=== PATIENT | female | born 1940 | race Caucasian/White ===

== ENCOUNTER → 2016-12-14 | Outpatient (CLI) | payer BC ==
[2016-12-14 17:12] LABS: BLOOD UREA NITROGEN 12 mg/dl (7-18); BUN/CREATININE RATIO 21.9 (10-20); CALCIUM 8.9 mg/dl (8.5-10.1); CARBON DIOXIDE 30 mmol/L (21-32); CHLORIDE 105 mmol/L (98-107); CREATININE 0.54 mg/dl (0.60-1.20); GLUCOSE 94 mg/dl (70-99); PHOSPHORUS 3.1 mg/dl (2.5-4.9); POTASSIUM 3.7 mmol/L (3.5-5.1); SODIUM 142 mmol/L (136-145)
== END | disposition home or self-care (01) ==
LOC: C.LABBC 12:30
PROVIDERS: ATTEND Internal Medicine Nephrology
DX: N28.1 Cyst of kidney, acquired (principal)

== ENCOUNTER → 2016-12-16 | Outpatient (CLI) | payer BC ==
[2016-12-16 16:06] LABS: URINE APPEARANCE CLEAR (CLEAR); URINE BILIRUBIN NEG (NEG); URINE COLOR DK YELLOW; URINE NITRITE NEG (NEG); URINE SPECIFIC GRAVITY 1.013 (1.000-1.030); UROBILINOGEN NEG (NEG); ZZUR CULT IF INDIC CLEAN CATCH NO
[2016-12-16 16:10] LABS: MANUAL MICROSCOPIC REQUIRED? NO; REVIEW REQ? NO
[2016-12-16 18:59] LABS: URINE PROTIEN/CREAT RATIO 0.1 (0-0.2); URINE TOTAL PROTEIN 6.4 mg/dl (0-11.9)
== END | disposition home or self-care (01) ==
LOC: C.LAB1850 13:46
PROVIDERS: ATTEND Internal Medicine Nephrology
DX: N28.1 Cyst of kidney, acquired (principal)

== ENCOUNTER → 2017-04-05 | Outpatient (CLI) | payer BC ==
[2017-04-05 11:16] LABS: BASO % 0.8 %; BASO ABS # 0.04 K/uL (0-0.2); COMPLETE YES; EOS % 3.2 %; HEMATOCRIT 39.8 % (37-47); LYMPH % 29.2 %; LYMPH ABS # 1.47 K/uL (1.2-3.4); MEAN CELL VOLUME 94.5 fL (80-100); MEAN CORPUSCULAR HEMOGLOBIN 31.1 pg (25-34); MEAN CORPUSCULAR HGB CONC 32.9 g/dl (32-36); MEAN PLATELET VOLUME 10.7 fL (7.4-10.4); MONO % 11.7 %; NEUT % 55.1 %; PLATELET COUNT 219 K/uL (130-400); RED BLOOD COUNT 4.21 M/uL (4.2-5.4); WHITE BLOOD COUNT 5.04 K/uL (4.8-10.8)
[2017-04-05 11:35] LABS: ALT/SGPT 25 U/L (12-78); BLOOD UREA NITROGEN 19 mg/dl (7-18); BUN/CREATININE RATIO 29.1 (10-20); CALCIUM 8.8 mg/dl (8.5-10.1); CARBON DIOXIDE 31 mmol/L (21-32); CHLORIDE 105 mmol/L (98-107); CHOLESTEROL 272 mg/dl (0-200); CREATININE 0.64 mg/dl (0.60-1.20); GLUCOSE 107 mg/dl (70-99); POTASSIUM 3.8 mmol/L (3.5-5.1); SODIUM 141 mmol/L (136-145)
[2017-04-05 11:46] LABS: ALB/GLOB RATIO 1.1 (0.9-2); ALKALINE PHOSPHATASE 93 U/L (45-117); AST/SGOT 23 U/L (15-37); CHOLESTEROL/HDL RATIO 2.5; HDL CHOLESTEROL 111 mg/dl; LDL CHOLESTEROL CALCULATED 156 mg/dl; TRIGLYCERIDES 23 mg/dl (0-150); VERY LOW DENSITY LIPOPROT CALC 5 mg/dl
--- NOTE | 2017-04-09 13:46 | CODING QUERY MEDICAL NECESSITY ---
SUPPORTING DIAGNOSIS NEEDED A supporting diagnosis is required for the test/procedure performed on this patient in order for us to be reimbursed by the patient's insurance. Please provide a supporting diagnosis for the following test/procedure listed below next to the test name along with your signature. *If there is no additional diagnosis for this patient that would support the following test/procedure please document that below next to the test/procedure. Test(s)/Procedure(s) that require a supporting diagnosis: * VITAMIN D, 25-HYDROXY DIAGNOSIS: Provider Signature: Date: Thank you Duyen Santa [employer] Information Management Once completed, please kindly fax back to [phone] For questions please call [phone]
== END | disposition home or self-care (01) ==
LOC: C.LABBC 08:56
PROVIDERS: ATTEND Internal Medicine Geriatric Medicine
DX: E78.5 Hyperlipidemia, unspecified (principal); K58.9 Irritable bowel syndrome, unspecified; M16.11 Unilateral primary osteoarthritis, right hip; M81.0 Age-related osteoporosis without current pathological fracture

== ENCOUNTER → 2017-12-02 | Outpatient (CLI) | payer BC ==
[2017-12-02 09:36] LABS: BASO % 0.9 %; BASO ABS # 0.05 K/uL (0-0.2); EOS % 3.4 %; EOS ABS # 0.18 K/uL (0-0.5); HEMATOCRIT 41.7 % (37-47); HEMOGLOBIN 13.9 g/dL (12.0-16.0); IG# 0.01 K/uL (0.00-0.02); LYMPH ABS # 1.44 K/uL (1.2-3.4); MEAN CELL VOLUME 93.3 fL (80-100); MEAN CORPUSCULAR HEMOGLOBIN 31.1 pg (25-34); MEAN CORPUSCULAR HGB CONC 33.3 g/dl (32-36); MEAN PLATELET VOLUME 10.3 fL (7.4-10.4); MONO % 11.6 %; MONO ABS # 0.62 K/uL (0.11-0.59); NEUT % 56.9 %; NEUT ABS # 3.03 K/uL (1.4-6.5); PLATELET COUNT 228 K/uL (130-400); RED CELL DISTRIBUTION WIDTH CV 14.3 % (11.5-14.5); RED CELL DISTRIBUTION WIDTH SD 48.8 fL (36.4-46.3); WHITE BLOOD COUNT 5.33 K/uL (4.8-10.8)
[2017-12-02 09:46] LABS: BLOOD UREA NITROGEN 25 mg/dl (7-18); CARBON DIOXIDE 31 mmol/L (21-32); CREATININE 0.64 mg/dl (0.60-1.20); GLUCOSE 105 mg/dl (70-99); POTASSIUM 4.2 mmol/L (3.5-5.1); SODIUM 137 mmol/L (136-145)
== END | disposition home or self-care (01) ==
LOC: C.CPL 08:15
PROVIDERS: ATTEND Orthopaedic Surgery Hand Surgery
DX: Z01.818 Encounter for other preprocedural examination (principal); D18.01 Hemangioma of skin and subcutaneous tissue; R22.32 Localized swelling, mass and lump, left upper limb

== ENCOUNTER → 2018-04-11 | Outpatient (CLI) | payer BC | END | disposition home or self-care (01) | LOC: C.LABBC 08:12 | PROVIDERS: ATTEND Internal Medicine Geriatric Medicine | DX: E78.5 Hyperlipidemia, unspecified (principal) ==

== ENCOUNTER 2023-12-31 14:51 | Inpatient (IN) ==
--- NOTE | 2023-12-31 15:50 | XRay Report ---
XR hip RT 2V w pelvis CLINICAL HISTORY: trauma. Right hip pain. COMPARISON STUDY: None. FINDINGS: Mildly displaced and comminuted intertrochanteric fracture within the proximal right femur. No dislocation of the femoral head. The visualized pelvic bones and left hip are intact. Vascular ca lcifications are noted. IMPRESSION: Mildly displaced and comminuted intertrochanteric fracture within the proximal right fem ur. ACT 112: Negative or not required by law. Electronically signed by: Marcio Jackson M.D. 12/31/2023 3:48 PM
[2023-12-31] MEDS ORDERED: MoRPHine SULFATE 2 MG/ML CARP IV PRN (15:57)
--- NOTE | 2023-12-31 16:00 | Emergency Department Note ---
Impression & Plan Acute pain of right hip, Intertrochanteric fracture of right hip ED Provider Note ED Provider Note NAME: INOCENTE ROSARIO AGE:83 SEX: Female : 1940 ARRIVES VIA: EMS INFORMANT: Patient ED PROVIDER(s): Marga Goldberg DO CHIEF COMPLAINT: Fall, right hip pain HPI: This is an 83-year-old female who presents emergency department due to concern for a fall and subsequent right hip pain. Patient was at work today and went to transfer from a stationary chair to a chair with wheels and that chair slid out from under her causing her to fall. She states she landed on her butt and hips. She did not strike her head or lose consciousness. Patient states she felt well just was unable to get up due to pain. Patient denies any other prodromal symptoms this morning. Has otherwise been feeling well and in her usual state of health. Patient states she does take low-dose aspirin every other day, no other blood thinners. PAST MEDICAL HISTORY:See Below PAST SURGICAL HISTORY:See Below FAMILY HISTORY:See Below SOCIAL HISTORY:See Below HOME MEDICATIONS:See Below ALLERGIES:See Below VITALS:See Below PHYSICAL EXAMINATION: GENERAL: alert, well appearing, well nourished, no distress, non-toxic EYE EXAM: normal conjunctiva, PERRL and EOM's grossly intact OROPHARYNX: no exudate, no erythema, lips, buccal mucosa, and tongue normal and mucous membranes are dry NECK: supple, no nuchal rigidity, no adenopathy, non-tender LUNGS: Clear to auscultation. Normal chest wall mechanics, no w/r/r HEART: no murmurs, S1 normal and S2 normal ABDOMEN: abdomen soft, non-tender, normo-active bowel sounds, no masses, no rebound or guarding. SKIN: no rashes, petechiae, orbruising UPPER EXTREMITIES: upper extremities are grossly normal. FROM, nml pulses b/l. LOWER EXTREMITIES: No pitting edema. FROM LLE, nml pulses b/l. Sensation intact bilaterally. Decreased range of motion secondary to pain at the right hip. Right lower extremity externally rotated. NEURO EXAM: Normal sensorium, cranial nerves II-XII grossly intact, normal speech, no facial droop,nogross weakness of arms, no gross weakness of legs. Gross sensation intact. No ataxia. Vital Signs: reviewed and remarkable Differential Diagnosis: Occult fracture, dislocation, subluxation, contusion, musculoskeletal strain/sprain, hematoma, ligamentous injury, as well as others were considered MEDICAL DECISION MAKING: This is an 83 yo female who presents to the ER following an accidental fall while at work. Xrays performed at bedside and interpreted by me which showed intertrochanteric right hip fracture. Patient updated at bedside. Labs drawn and sent, IV established, and patient monitored on telemetry. She was given IVF and IV tylenol initially. A prn of morphine was also added. EKG performed and interpreted by me additionally. CXR added given need for operative intervention. Case discussed the hospitalist team for additional evaluation and mgmt. I did contact [facility] orthopedics per patient request. Given patient will require medical clearance andher last oral intake was at 12:30 today, they defer consultation to the oncoming orthopedist at 5pm. Consultation(s): 1606: Discussed with Dr. Montgomery and Escobar Diallo PA-C with [facility] hospitalist service for additional evaluation and mgmt. ER Treatment Provided: See below 1548: Patient and family are now presents to bedside updated on x-ray results. Patient would like the [facility] orthopedic group to perform the surgery as she has seen them previously. Diagnostics Interpreted By Me: -ECG: Normal sinus at 72, normal axis, normal intervals, nonspecific ST/T wave changes -Cardiac Monitoring: An order was placed for continuous cardiac monitoring. The monitor shows a rate of 70 with normal sinus rhythm. -Laboratory studies: As stated above and show below. -Imaging studies: xr right hip: Intertrochanteric hip fracture noted with mild displacement Triage Nursing Note Reviewed Prior/Outside Records Reviewed Past Med/Surg History Medical History Wart of face Encounter for pre-operative examination Liver cyst Diverticulosis of sigmoid colon Uterine cancer Post hysterectomy bilateral salpingo-oophorectomy August 2002 Reactive hypertension Dyslipidemia Irritable bowel syndrome Osteoarthritis of right hip Osteoarthritis of spine Osteoporosis Sensorineural hearing loss (SNHL) of both ears Surgical History History of right cataract surgery History of bilateral tubal ligation History of esophagogastroduodenoscopy (EGD) History of total hysterectomy with bilateral salpingo-oophorectomy (BSO) (~2002) History of wisdom tooth extraction History of hernia surgery 08/2019 @ [facility] [place]--also repaired uterine prolapse at the same time History of uterine prolapse done at same time as hernia sx History of colonoscopy S/P tonsillectomy Family History Son Esophageal reflux Asthma Father Diabetes Heart disease Myocardial infarction Hypertension Mother Heart disease Daughter Allergies Family/Other Dyslipidemia Breast cancer Substance abuse in family Other No family history of adverse response to anesthesia Denies family history of Ovarian cancer Prostate cancer Colonic polyp Social History Smoking Status: Former smoker Tobacco Type: Cigarettes Age Started Using Tobacco: 19; Age Quit Using Tobacco: 24; packs per day: 0.5; Second Hand Exposure: No; Do You Dip or Chew Tobacco: No; Tobacco Cessation Education Requested by Patient: No Hx Alcohol Use: Yes Alcohol type: wine Alcohol Intake Frequency: 4 or More x per/Week Alcohol Intake Frequency Comment: 1 glass of wine daily Hx Substance Use: No Preferred Language: Korean Communication Ability: Effective Director Script Required: No Beliefs That Will Affect Care: None marital status: Current Living Situation: Spouse current occupational status: employed current occupation: works some at [employer] Other Information That Helps Us Care for You: No Feels Safe at Home: Yes Safety Concerns: Feels Safe At This Time Childhood Exposure to Second-Hand Smoke: Yes Dental Care, Regularly: Yes Physical Activity Frequency: 5-6 Times per Week Physical Activity Frequency Comment: pilates, walking Seatbelt Use: always Sunscreen Use: Yes Assistive Devices: None Allergies Allergies Allergy/AdvReac Type Severity Reaction Status Date / Time cephalexin Allergy Mild red rash Verified 12/31/23 18:31 all over body Home Meds Home Medications Medication Instructions Recorded Confirmed multivitamin (Multiple Vitamins 1 tab PO BID 03/20/19 12/31/23 tablet) omega-3 fatty acids 1,000 mg 1,000 mg PO QPM 03/20/19 12/31/23 capsule ascorbic acid (vitamin C) 500 mg 500 mg PO BID 07/14/19 12/31/23 tablet cholecalciferol (vitamin D3) 50 2,000 units PO QAM 07/14/19 12/31/23 mcg (2,000 unit) tablet vitamin E 600 unit capsule 600 units PO QPM 07/14/19 12/31/23 calcium carbonate (Calcium 600) 1,200 mg PO BID 02/10/21 12/31/23 turmeric 400 mg capsule 400 mg PO QAM 02/10/21 12/31/23 coenzyme Q10 100 mg capsule 100 mg PO QDL 03/18/21 12/31/23 (CoQ-10) zinc 50 mg tablet 50 mg PO QPM 03/18/21 12/31/23 aspirin 81 mg tablet,delayed 81 mg PO Q OTHER DAY 03/22/23 12/31/23 release vitamin A 1 applic topical HS Applies to face 12/31/23 12/31/23 Previous Rx's Medication Instructions Recorded amlodipine 2.5 mg tablet 2.5 mg PO QAM #90 tabs 03/22/23 rosuvastatin 10 mg tablet (Crestor) 10 mg PO HS #90 tabs 03/22/23 Results & Data (ED) Vital Signs Vital Signs - 24 hr 12/31/23 15:11 12/31/23 15:18 Temperature 36.9 C Temperature Source Oral Pulse Rate 75 74 Pulse Rhythm Regular Pulse Strength Normal Respiratory Rate 18 Respiratory Effort / Characteristics Non-Labored Respiratory Depth Normal Respiratory Pattern Regular Blood Pressure 136/96 Blood Pressure Mean 109 Blood Pressure Position Sitting Pulse Oximetry 95 Oxygen Delivery Method Room Air Sepsis Recent Fever Within 48 Hours No Sepsis New/Unexplained Change in Mental Status N/A Sepsis Action Taken by Nursing No Action Required Laboratory Data 01/01/24 06:22 01/01/24 06:22 Lab Results 12/31/23 Range/Units 16:23 WBC 8.91 (4.8-10.8) K/ul RBC 4.62 (4.20-5.40) M/uL Hgb 13.8 (12.0-16.0) g/dl Hct 41.9 (37.0-47.0) % MCV 90.7 (80.0-100.0) fL MCH 29.9 (25.0-34.0) pg MCHC 32.9 (32.0-36.0) g/dL RDW Std Deviation 47.8 H (36.4-46.3) fL RDW Coeff of Arnel 14.2 (11.5-14.5) % Plt Count 225 (130-400) K/uL MPV 10.9 (9.4-12.4) fL Immature Gran % (Auto) 1.1 % Neut % (Auto) 78.3 % Lymph % (Auto) 11.3 % Smyth % (Auto) 7.9 % Eos % (Auto) 0.8 % Baso % (Auto) 0.6 % Neut # (Auto) 6.98 H (1.40-6.50) K/uL Lymph # (Auto) 1.01 L (1.20-3.40) K/uL Smyth # (Auto) 0.70 H (0.11-0.59) K/uL Eos # (Auto) 0.07 (0.00-0.50) K/uL Baso # (Auto) 0.05 (0.00-0.20) K/uL Immature Gran # (Auto) 0.10 (0.01-0.20) K/uL PT 10.9 (9.0-12.0) Seconds INR 1.0 (0.9-1.1) Sodium 138 (136-145) mmol/L Potassium 3.8 (3.5-5.1) mmol/L Chloride 103 (98-107) mmol/L Carbon Dioxide 27 (21-32) mmol/L Anion Gap 8 (3-11) BUN 27 H (6-23) mg/dl Creatinine 0.42 L (0.6-1.2) mg/dl Est Cr Clr Drug Dosing 86.9 ml/min Est GFR ( Amer) 111.4 ml/min Est GFR (Non-Af Amer) 96.1 ml/min BUN/Creatinine Ratio 64.3 H (10-20) Glucose 119 H (70-99(Fasting)) mg/dl Calcium 9.7 (8.6-10.3) mg/dl Total Bilirubin 0.4 (0.2-1.0) mg/dl AST 23 (13-39) U/L ALT 19 (7-52) U/L Alkaline Phosphatase 96 (34-104) U/L Total Protein 7.4 (6.0-8.3) gm/dl Albumin 4.2 (3.4-5.0) gm/dl Globulin 3.2 (2.5-4.0) gm/dl Albumin/Globulin Ratio 1.3 (0.9-2) Administered Medications Acetaminophen (Acetaminophen 325 Mg Tab) 650 mg PO Q6H ERNESTO Stop: 01/30/24 19:59 Last Admin: 01/01/24 14:20 Dose: 650 mg Documented By: Admin: 01/01/24 11:18 Dose: Not Given Documented By: Admin: 01/01/24 02:15 Dose: 650 mg Documented By: Admin: 12/31/23 22:09 Dose: 650 mg Documented By: LUMA Aspirin (Aspirin 81 Mg Ectab) 81 mg PO Q2D@2100 ERNESTO Stop: 01/30/24 20:59 Last Admin: 12/31/23 22:09 Dose: 81 mg Documented By: LUMA Sodium Chloride (Nss) 1,000 mls @ 75 mls/hr IV .[id number] [facility] Stop: 01/30/24 15:44 Last Admin: 01/01/24 03:40 Dose: 125 mls/hr Documented By: Infusion: 01/01/24 03:40 Dose: Infused Documented By: Admin: 12/31/23 20:02 Dose: 125 mls/hr Documented By: Infusion: 12/31/23 20:01 Dose: Infused Documented By: Admin: 12/31/23 16:20 Dose: 125 mls/hr Documented By: SHARRON Morphine Sulfate (Morphine Sulfate 2 Mg/Ml Carp) 2 mg IV Q3H PRN PRN Reason: Pain (1,2,3,4,5) & Pre PT Stop: 01/14/24 16:30 Last Admin: 12/31/23 19:59 Dose: 2 mg Documented By: LUMA Rosuvastatin Calcium (Rosuvastatin Calcium 10 Mg Tab) 10 mg PO HS ERNESTO Stop: 01/30/24 20:59 Last Admin: 12/31/23 22:09 Dose: 10 mg Documented By: LUMA Discontinued Medications Acetaminophen (Acetaminophen 1000 Mg/100 Ml Iv) Confirm Administered Dose 1,000 mg IV .STK-MED ONE Stop: 01/01/24 07:49 Last Admin: 01/01/24 11:18 Dose: Not Given Documented By: LAUREN Bupivacaine HCl/Epinephrine Bitart (Bupivacaine/Epinephrine 0.25% 1:200,000 30 Ml Vial) Confirm Administered Dose 30 ml .ROUTE .STK-MED ONE Stop: 01/01/24 07:29 Last Admin: 01/01/24 08:52 Dose: 30 ml Documented By: AKBAR Acetaminophen (Ofirmev) 1,000 mg in 100 mls @ 400 mls/hr IV NOW STA Stop: 12/31/23 15:57 Last Infusion: 12/31/23 16:35 Dose: Infused Documented By: Admin: 12/31/23 16:20 Dose: 400 mls/hr Documented By: SHARRON Vancomycin HCl (Vancomycin Hcl) 1,000 mg in 270 mls @ 242 mls/hr IV PREOP ERNESTO; Protocol Stop: 01/02/24 05:59 Last Infusion: 01/01/24 11:19 Dose: Infused Documented By: Admin: 01/01/24 07:56 Dose: 242 mls/hr Documented By: MANJU Morphine Sulfate (Morphine Sulfate 4 Mg/Ml 1 Ml Carp\Vial) 4 mg IV Q3H PRN PRN Reason: Pain (6,7,8,9,10) Stop: 01/14/24 16:30 Last Admin: 01/01/24 06:14 Dose: 4 mg Documented By: Admin: 01/01/24 02:15 Dose: 4 mg Documented By: Admin: 12/31/23 22:59 Dose: 4 mg Documented By: Admin: 12/31/23 16:49 Dose: 4 mg Documented By: SHARRON Morphine Sulfate (Morphine Sulfate 4 Mg/Ml 1 Ml Carp\Vial) Confirm Administered Dose 4 mg .ROUTE .STK-MED ONE Stop: 12/31/23 16:48 Last Admin: 12/31/23 16:52 Dose: Not Given Documented By: [facility] Imaging Data Radiologist's Impression: Femur X-Ray 12/31/23 15:08 XR femur RT 2V routine HISTORY: 83 years-old Female trauma acute pain of the right hip and thigh COMPARISON: Pelvis and hip radiographs of same day TECHNIQUE: 2 views of the right femur FINDINGS: There is an acute and a comminuted mildly displaced intertrochanteric right femoral fracture. Severe right hip osteoarthritis. Demineralized appearance of the bones. No additional acute fracture or dislocation. Tricompartmental osteoarthritis of the knee. IMPRESSION: Acute comminuted and displaced intertrochanteric right femoral fracture. ACT 112: Negative or not required by law. The above report was generated using voice recognition software. It may contain grammatical, syntax or spelling errors. Electronically signed by: Cole Valentine M.D. 12/31/2023 4:03 PM Hip/Pelvis X-Ray 12/31/23 15:08 XR hip RT 2V w pelvis CLINICAL HISTORY: trauma. Right hip pain. COMPARISON STUDY: None. FINDINGS: Mildly displaced and comminuted intertrochanteric fracture within the proximal right femur. No dislocation of the femoral head. The visualized pelvic bones and left hip are intact. Vascular calcifications are noted. IMPRESSION: Mildly displaced and comminuted intertrochanteric fracture within the proximal right femur. ACT 112: Negative or not required by law. Electronically signed by: Macrio Jackson M.D. 12/31/2023 3:48 PM Discharge Plan Visit Data Chief Complaint: Leg Injury/Pain Stated Complaint: S/P FALL, R LEG PAIN ED Provider: Marga Goldberg Discharge Problem: Acute pain of right hip, Intertrochanteric fracture of right hip Patient Disposition: Admitted As Inpatient Discharge Instructions Interventions: ED Discharge Assessment Last Done: 12/31/23 18:58
--- NOTE | 2023-12-31 16:04 | XRay Report ---
XR femur RT 2V routine HISTORY: 83 years-old Female trauma acute pain of the right hip and thigh COMPARISON: Pelvis and hip radiographs of same day TECHNIQUE: 2 views of the right femur FINDINGS: There is an acute and a comminuted mildly displaced intertrochanteric right femoral fracture. Severe right hip osteoarthritis. Demineralized appearance of the bones. No additional acute fracture or disl ocation. Tricompartmental osteoarthritis of the knee. IMPRESSION: Acute comminuted and displaced intertrochanteric right femoral fracture. ACT 112: Negative or not required by law. The above report was generated using voice recognition software. It may contain grammatical, syntax o r spelling errors. Electronically signed by: Cole Valentine M.D. 12/31/2023 4:03 PM
--- NOTE | 2023-12-31 16:11 | History & Physical Report ---
Date of Service December 31, 2023 Assessment & Plan (1) Osteoporotic hip fracture: Plan: -Patient is currently stable and non-toxic appearing -Will plan to place patient on Med/surge unless pre-admission labs currently in process necessitate higher level of care -Patient sustained a Mildly displaced and comminuted intertrochanteric fracture within the proximal right femur after falling to the ground while trying to transfer from one chair to another at the [facility] -No prodromal symptoms, did not hit her head or lose consciousness, is not on anticoagulation -No other acute trauma on exam, pain is currently controlled at rest -Patient is a Class 1 on the Revised Cardiac Risk index, giving her a 3.9% 30- day risk of , NV, or Cardiac Arrest post >Patient is deemed cleared for Surgical Intervention -Will continue with Scheduled Tylenol and PRN morphine for pain control -Orthopedic consult placed -BL SCD's for DVT PPX for now -HH diet until midnight then NPO for surgery tomorrow, will confirm with Orthopedics regarding scheduled operation -AM CBC, CMP, mag, PT/INR (2) Fall: Plan: -Fell while trying to transfer from one chair to the other at her [employer] -Did not hit her head or lose consciousness -No other acute trauma on exam -No prodromal symptoms prior to fall -Fall precautions -PT/OT consults (3) Dyslipidemia: Plan: -Continue aspirin and statin (4) HTN (hypertension): Plan: -Stable -Will plan on holding her am amlodipine tomorrow if Orthopedics is planning on taking to the OR 12/31 (5) Coronary artery calcification: Plan: -No previous hx of NV or Stenting -Had a negative stress test on 07/26/23 -Continue aspirin and statin Plan The patient was discussed with Dr. Montgomery at the time of the admission History of Present Illness Chief Complaint: Fall, rightLE pain Primary Care Provider: Flaco Ferrell MD Ita is an 83 year old female with a PMH significant for Hyperlipidemia, Mitral Valve Prolapse, Hypertension, Dilated Ascending Aorta (4.2 cm), Prediabetes, Osteoarthritis, Osteoporosis, and Endometrial Cancer s/p LADI/BSO who presented to the [facility] ED on 12/31/23 with a chief complaint of RLE pain after falling out of a chair at her place of work. Per the ED staff, the patient was trying to transfer from a stationary chair to a chair with wheels. While trying to transfer, the chair with wheels moved causing her to fall to the ground and land on her buttocks. She remained stable in the ED. CBC, CMP, and PT/INR were obtain shortly before admission and are in process. Xray of the pelvis and right femur show an Acute comminuted and displaced intertrochanteric right femoral fracture. Chest xray was read as negative for acute findings. Prior to admission the patient was given 1L NSS, 1gm IV tylenol, and 2 mg IV morphine. At the time of the exam the patient was sitting in bed in no acute distress with her bedside. She states that she was at the [facility] when she was trying to switch from one chair to the other. She states that the new chair she was trying to transfer to rolled out from under her, causing her to fall to the ground. She landed on her right buttocks/hip, did not hit her head or lose consciousness. She is only on aspirin and is not on systemic anticoagulation. Her only pain at this time is in her right hip/RLE; pain is currently mild at rest. She currently denies fever, chills, headache, chest pain, SOB, cough, abd pain, nausea, vomiting, diarrhea, dysuria hematuria, melena, and recent LE swelling. She did have her am meds today. She last ate at approximately 1300 today. She is a full code and her is her medical decision maker if she cannot make decisions herself. Please refer to Dr. Montgomery's attestation for any changes to the treatment plan Allergies Allergy/AdvReac Type Severity Reaction Status Date / Time cephalexin Allergy Mild red rash Verified 12/31/23 18:31 all over body Home Medications Medication Instructions Recorded Confirmed Type multivitamin (Multiple Vitamins 1 tab PO BID 03/20/19 12/31/23 History tablet) omega-3 fatty acids 1,000 mg 1,000 mg PO QPM 03/20/19 12/31/23 History capsule ascorbic acid (vitamin C) 500 mg 500 mg PO BID 07/14/19 12/31/23 History tablet cholecalciferol (vitamin D3) 50 2,000 units PO QAM 07/14/19 12/31/23 History mcg (2,000 unit) tablet vitamin E 600 unit capsule 600 units PO QPM 07/14/19 12/31/23 History calcium carbonate (Calcium 600) 1,200 mg PO BID 02/10/21 12/31/23 History turmeric 400 mg capsule 400 mg PO QAM 02/10/21 12/31/23 History coenzyme Q10 100 mg capsule 100 mg PO QDL 03/18/21 12/31/23 History (CoQ-10) zinc 50 mg tablet 50 mg PO QPM 03/18/21 12/31/23 History amlodipine 2.5 mg tablet 2.5 mg PO QAM #90 tabs 03/22/23 12/31/23 Rx aspirin 81 mg tablet,delayed 81 mg PO Q OTHER DAY 03/22/23 12/31/23 History release rosuvastatin 10 mg tablet (Crestor) 10 mg PO HS #90 tabs 03/22/23 12/31/23 Rx vitamin A 1 applic topical HS Applies to face 12/31/23 12/31/23 History Past Med/Surg History Medical History Wart of face Encounter for pre-operative examination Liver cyst Diverticulosis of sigmoid colon Uterine cancer Post hysterectomy bilateral salpingo-oophorectomy August 2002 Reactive hypertension Dyslipidemia Irritable bowel syndrome Osteoarthritis of right hip Osteoarthritis of spine Osteoporosis Sensorineural hearing loss (SNHL) of both ears Surgical History History of right cataract surgery History of bilateral tubal ligation History of esophagogastroduodenoscopy (EGD) History of total hysterectomy with bilateral salpingo-oophorectomy (BSO) (~2002) History of wisdom tooth extraction History of hernia surgery 08/2019 @ [facility]--also repaired uterine prolapse at the same time History of uterine prolapse done at same time as hernia sx History of colonoscopy S/P tonsillectomy Family History Son Esophageal reflux Asthma Father Diabetes Heart disease Myocardial infarction Hypertension Mother Heart disease Daughter Allergies Family/Other Dyslipidemia Breast cancer Substance abuse in family Other No family history of adverse response to anesthesia Denies family history of Ovarian cancer Prostate cancer Colonic polyp Social History Smoking Status: Former smoker Tobacco Type: Cigarettes Age Started Using Tobacco: 19; Age Quit Using Tobacco: 24; packs per day: 0.5; Second Hand Exposure: No; Do You Dip or Chew Tobacco: No; Tobacco Cessation Education Requested by Patient: No Hx Alcohol Use: Yes Alcohol type: wine Alcohol Intake Frequency: 4 or More x per/Week Alcohol Intake Frequency Comment: 1 glass of wine daily Hx Substance Use: No Preferred Language: Armenian Communication Ability: Effective Global Category Manager Required: No Beliefs That Will Affect Care: None marital status: Current Living Situation: Spouse current occupational status: employed current occupation: works some at [employer] Other Information That Helps Us Care for You: No Feels Safe at Home: Yes Safety Concerns: Feels Safe At This Time Childhood Exposure to Second-Hand Smoke: Yes Dental Care, Regularly: Yes Physical Activity Frequency: 5-6 Times per Week Physical Activity Frequency Comment: pilates, walking Seatbelt Use: always Sunscreen Use: Yes Assistive Devices: None Physical Exam Physical Exam: Physical Exam: General: In no acute distress, stated age, well-nourished, good hygiene HEENT: Normocephalic, atraumatic, no scleral icterus, pupils around round, symmetrical, and reactive to light, moist mucus membranes, trachea midline, no thyromegaly Chest/Pulm: No respiratory distress, symmetrical chest expansion, clear breath sounds throughout Cardiac: RRR, no murmurs noted Abdomen: Negative for ascites and bruising, normoactive bowel sounds, soft, non-tender to palpation throughout Musculoskeletal: RLE is currently shortened and externally, no bruising or bleeding noted on examingation of the abdomen/pelvis/BL LE's, no other acute trauma noted on inspection and palpation of the head, neck, BL UE's, chest, abd/pelvis, and LLE, >Intact sensation and motor function in the BL feet Extremities: Radial, dorsalis pedis, and posterior tibial pulses are intact and symmetrical, no edema noted in the BL LE's Skin: Warm, dry, no rashes , lesions, or scars noted Neuro: Alert and oriented to person, place, month, year, and president, no focal defects, no tremors noted Psych: No acute distress, calm and cooperative during the exam Results & Data Results & Data Vital Signs (Past 12 Hours) Vital Signs Temp Pulse Resp BP Pulse Ox O2 Del Method 12/31/23 15:18 74 12/31/23 15:11 36.9 C 75 18 136/96 95 Room Air Diagnostic Findings Femur X-Ray 12/31/23 15:08 XR femur RT 2V routine HISTORY: 83 years-old Female trauma acute pain of the right hip and thigh COMPARISON: Pelvis and hip radiographs of same day TECHNIQUE: 2 views of the right femur FINDINGS: There is an acute and a comminuted mildly displaced intertrochanteric right femoral fracture. Severe right hip osteoarthritis. Demineralized appearance of the bones. No additional acute fracture or dislocation. Tricompartmental osteoarthritis of the knee. IMPRESSION: Acute comminuted and displaced intertrochanteric right femoral fracture. ACT 112: Negative or not required by law. The above report was generated using voice recognition software. It may contain grammatical, syntax or spelling errors. Electronically signed by: Cole Valentine M.D. 12/31/2023 4:03 PM Hip/Pelvis X-Ray 12/31/23 15:08 XR hip RT 2V w pelvis CLINICAL HISTORY: trauma. Right hip pain. COMPARISON STUDY: None. FINDINGS: Mildly displaced and comminuted intertrochanteric fracture within the proximal right femur. No dislocation of the femoral head. The visualized pelvic bones and left hip are intact. Vascular calcifications are noted. IMPRESSION: Mildly displaced and comminuted intertrochanteric fracture within the proximal right femur. ACT 112: Negative or not required by law. Electronically signed by: Marcio Jackson M.D. 12/31/2023 3:48 PM Chest X-Ray 12/31/23 15:43 XR chest 1V portable HISTORY: pre-op COMPARISON: Chest 11/20/2022. FINDINGS: No pneumothorax. No pleural effusions. Slightly rotated study. The lungs are clear. The heart remains mildly enlarged. No evidence for pulmonary edema. Degenerative changes within the shoulders. Mild dextroscoliosis of the thoracic spine, unchanged. IMPRESSION: Stable cardiomegaly. No acute process within the chest. ACT 112: Negative or not required by law. Electronically signed by: Marcio Jackson M.D. 12/31/2023 4:29 PM ECG Additional Comments: Normal sinus rhythm Minimal voltage criteria for LVH, may be normal variant ( R in aVL ) Junctional ST depression, probably normal Borderline ECG When compared with ECG of 20-NOV-2022 22:58, Non-specific change in ST segment in Anterior leads Code Status & VTE Plan Code Status Full code VTE Prophylaxis Plan VTE Prophylaxis will be ordered: Yes Supervising Physician Co-Signing Physician Notes I personally saw and examined the patient. I verified all dunlap points and agree with Escobar Diallo PA-C with the following exceptions and/or additions: 83 year old female presents to the ER with right hip pain following a fall while going to sit down on a chair with wheels. Known osteoporosis O/E A&Ox3, HS irregular rhythm, regular rate, no murmurs, Chest CTAB, Abdo SNT, right leg shortened and externally rotated, DP/PT pulses normal b/l A/P Osteoporotic hip fracture - intertrochanteric fracture within the proximal right femur, consult orthopedics PG Care Time/CCT Total # of Minutes Spent Total Time Spent with Patient: Total time spent is greater than 50% in coordination of care (as documented) at patient's floor/unit and/or counseling patient: [place] [address] INT INP/OBS CARE 2/55MIN Patient Type Established Medical Decision Making Moderate Complexity Diagnoses Osteoporotic hip fracture M80.059A Fall W19.XXXA Dyslipidemia E78.5 HTN (hypertension) I10 Coronary artery calcification I25.10; I25.84
[2023-12-31] MEDS: SODIUM CHLORIDE 0.9% 1,000 ML IV SCH (16:20)
[2023-12-31] MEDS: ACETAMINOPHEN 1,000 MG/100 ML VIAL IV STA (16:20)
--- NOTE | 2023-12-31 16:30 | XRay Report ---
XR chest 1V portable HISTORY: pre-op COMPARISON: Chest 11/20/2022. FINDINGS: No pneumothorax. No pleural effusions. Slightly rotated study. The lungs are clear. The hea rt remains mildly enlarged. No evidence for pulmonary edema. Degenerative changes within the shoulder s. Mild dextroscoliosis of the thoracic spine, unchanged. IMPRESSION: Stable cardiomegaly. No acute process within the chest. ACT 112: Negative or not required by law. Electronically signed by: Marcio Jackson M.D. 12/31/2023 4:29 PM
[2023-12-31] MEDS ORDERED: bisacodyL 10 MG SUPP PR PRN (16:31)
[2023-12-31] MEDS ORDERED: ONDANSETRON INJ 2 MG/ML 2 ML VIAL IV PRN (16:31)
[2023-12-31] MEDS ORDERED: NALOXONE HCL 0.4 MG/1 ML VIAL/CARP IV PRN (16:31)
[2023-12-31] MEDS: MoRPHine SULFATE 4 MG/ML 1 ML CARP\\VIAL IV PRN (16:49)
[2023-12-31] MEDS: MoRPHine SULFATE 4 MG/ML 1 ML CARP\\VIAL ONE (16:52)
[2023-12-31 17:10] LABS: Basophils # (auto) 0.05 K/uL (0.00-0.20); Basophils % (auto) 0.6 %; Eosinophils # (auto) 0.07 K/uL (0.00-0.50); Eosinophils % (auto) 0.8 %; Hematocrit (blood only) 41.9 % (37.0-47.0); Hemoglobin 13.8 g/dl (12.0-16.0); Immature Granulocytes % (auto) 1.1 %; Lymphocytes # (auto) 1.01 K/uL (1.20-3.40); Lymphocytes % (auto) 11.3 %; Mean Corpuscular Hemoglobin 29.9 pg (25.0-34.0); Mean Corpuscular Hgb Conc 32.9 g/dL (32.0-36.0); Mean Corpuscular Volume 90.7 fL (80.0-100.0); Mean Platelet Volume 10.9 fL (9.4-12.4); Monocytes % (auto) 7.9 %; Neutrophils # (auto) 6.98 K/uL (1.40-6.50); Neutrophils % (auto) 78.3 %; Platelet Count 225 K/uL (130-400); RDW Coefficient of Variation 14.2 % (11.5-14.5); RDW Standard Deviation 47.8 fL (36.4-46.3); Red Blood Count 4.62 M/uL (4.20-5.40); White Blood Count 8.91 K/ul (4.8-10.8)
[2023-12-31 17:20] LABS: Albumin Globulin Ratio 1.3 (0.9-2); Albumin Level 4.2 gm/dl (3.4-5.0); BUN Creatinine Ratio 64.3 (10-20); Bilirubin,Total 0.4 mg/dl (0.2-1.0); Calcium 9.7 mg/dl (8.6-10.3); Creatinine Clr Calc Pharmacy 86.9 ml/min; Est GFR (African American) 111.4 ml/min; Est GFR (Non-African American) 96.1 ml/min; Globulin 3.2 gm/dl (2.5-4.0); Potassium 3.8 mmol/L (3.5-5.1); Total Protein 7.4 gm/dl (6.0-8.3)
[2023-12-31 17:22] LABS: Prothrombin Time 10.9 Seconds (9.0-12.0)
[2023-12-31] MEDS: MoRPHine SULFATE 2 MG/ML CARP IV PRN (19:59)
--- NOTE | 2023-12-31 20:42 | Orthopedic Consultation ---
Date of Service December 31, 2023 Assessment & Plan (1) Intertrochanteric fracture of right hip: I discussed with her the diagnosis and treatment options. I am recommending intramedullary nail fixation of the right hip. She understands the risk, benefits, and alternatives to the procedure and is electing to proceed. Questions were answered at bedside. Time was spent scribing the procedure and postop expectations. She will be n.p.o. past midnight tonight. We plan to do the surgery tomorrow morning. The decision was made for surgery. History of Present Illness Reason for Consultation: Right intertrochanteric hip fracture. Requesting Physician: . Attending Physician: Chris Montgomery MD Ita is a pleasant 83-year-old female who is a community ambulator without assistance. She lives in a house with her . She fell earlier today injuring her right hip. She came to the emergency room and radiographs demonstrated an intertrochanteric right hip fracture. She was admitted to the medical service. Orthopedics was consulted to evaluate and treat.. Allergies Allergy/AdvReac Type Severity Reaction Status Date / Time cephalexin Allergy Mild red rash Verified 12/31/23 18:31 all over body Home Medications Medication Instructions Recorded Confirmed Type multivitamin (Multiple Vitamins 1 tab PO BID 03/20/19 12/31/23 History tablet) omega-3 fatty acids 1,000 mg 1,000 mg PO QPM 03/20/19 12/31/23 History capsule ascorbic acid (vitamin C) 500 mg 500 mg PO BID 07/14/19 12/31/23 History tablet cholecalciferol (vitamin D3) 50 2,000 units PO QAM 07/14/19 12/31/23 History mcg (2,000 unit) tablet vitamin E 600 unit capsule 600 units PO QPM 07/14/19 12/31/23 History calcium carbonate (Calcium 600) 1,200 mg PO BID 02/10/21 12/31/23 History turmeric 400 mg capsule 400 mg PO QAM 02/10/21 12/31/23 History coenzyme Q10 100 mg capsule 100 mg PO QDL 03/18/21 12/31/23 History (CoQ-10) zinc 50 mg tablet 50 mg PO QPM 03/18/21 12/31/23 History amlodipine 2.5 mg tablet 2.5 mg PO QAM #90 tabs 03/22/23 12/31/23 Rx aspirin 81 mg tablet,delayed 81 mg PO Q OTHER DAY 03/22/23 12/31/23 History release rosuvastatin 10 mg tablet (Crestor) 10 mg PO HS #90 tabs 03/22/23 12/31/23 Rx vitamin A 1 applic topical HS Applies to face 12/31/23 12/31/23 History Past Med/Surg History Medical History Wart of face Encounter for pre-operative examination Liver cyst Diverticulosis of sigmoid colon Uterine cancer Post hysterectomy bilateral salpingo-oophorectomy August 2002 Reactive hypertension Dyslipidemia Irritable bowel syndrome Osteoarthritis of right hip Osteoarthritis of spine Osteoporosis Sensorineural hearing loss (SNHL) of both ears Surgical History History of right cataract surgery History of bilateral tubal ligation History of esophagogastroduodenoscopy (EGD) History of total hysterectomy with bilateral salpingo-oophorectomy (BSO) (~2002) History of wisdom tooth extraction History of hernia surgery 08/2019 @ [facility]--also repaired uterine prolapse at the same time History of uterine prolapse done at same time as hernia sx History of colonoscopy S/P tonsillectomy Family History Son Esophageal reflux Asthma Father Diabetes Heart disease Myocardial infarction Hypertension Mother Heart disease Daughter Allergies Family/Other Dyslipidemia Breast cancer Substance abuse in family Other No family history of adverse response to anesthesia Denies family history of Ovarian cancer Prostate cancer Colonic polyp Social History Smoking Status: Former smoker Tobacco Type: Cigarettes Age Started Using Tobacco: 19; Age Quit Using Tobacco: 24; packs per day: 0.5; Second Hand Exposure: No; Do You Dip or Chew Tobacco: No; Tobacco Cessation Education Requested by Patient: No Hx Alcohol Use: Yes Alcohol type: wine Alcohol Intake Frequency: 4 or More x per/Week Alcohol Intake Frequency Comment: 1 glass of wine daily Hx Substance Use: No Preferred Language: Botswanan Communication Ability: Effective Bank [employer] Savings Securities Trader Required: No Beliefs That Will Affect Care: None marital status: Current Living Situation: Spouse current occupational status: employed current occupation: works some at [employer] Other Information That Helps Us Care for You: No Feels Safe at Home: Yes Safety Concerns: Feels Safe At This Time Childhood Exposure to Second-Hand Smoke: Yes Dental Care, Regularly: Yes Physical Activity Frequency: 5-6 Times per Week Physical Activity Frequency Comment: pilates, walking Seatbelt Use: always Sunscreen Use: Yes Assistive Devices: None Review of Systems All systems reviewed & are unremarkable except as noted in HPI & below. Physical Exam On physical examination of the right hip, her right leg is shortened and ex ternally rotated. She has pain with forced internal/external rotation of her hip. Most of her pain is located in the groin.. Constitutional WD/WN, vitals as above Eyes PERRL, conjunctivae normal, anicteric sclerae ENMT external ear and nose normal, oropharynx normal Neck trachea midline, no thyromegaly Respiratory normal respiratory effort Cardiovascular RRR, no murmur, no edema Gastrointestinal (Abdomen) normal bowel sounds, soft, nontender, no hepatosplenomegaly Psychiatric A+Ox3, euthymic affect Results & Data Results & Data Laboratory Results . Diagnostic Findings X-rays of the right hip show a displaced right intertrochanteric hip fracture. PG Care Time/CCT Total # of Minutes Spent Total Time Spent with Patient: Total time spent is greater than 50% in coordination of care (as documented) at patient's floor/unit and/or counseling patient: Coding Level of Care Code 65624 IN/OBS CONSULT LVL 4,60M (57 - DECISION FOR SURGERY) Diagnoses Intertrochanteric fracture of right hip S72.141A
[2023-12-31] MEDS: ROSUVASTATIN CALCIUM 10 MG TAB PO SCH (22:09)
[2023-12-31] MEDS: ASPIRIN 81 MG ECTAB PO SCH (22:09)
[2023-12-31] MEDS: ACETAMINOPHEN 325 MG TAB PO SCH (22:09)
[2024-01-01 07:10] LABS: Basophils # (auto) 0.03 K/uL (0.00-0.20); Basophils % (auto) 0.4 %; Eosinophils # (auto) 0.08 K/uL (0.00-0.50); Eosinophils % (auto) 1.1 %; Hematocrit (blood only) 37.6 % (37.0-47.0); Hemoglobin 12.1 g/dl (12.0-16.0); Immature Granulocytes # (auto) 0.01 K/uL (0.01-0.20); Immature Granulocytes % (auto) 0.1 %; Lymphocytes # (auto) 1.14 K/uL (1.20-3.40); Lymphocytes % (auto) 15.8 %; Mean Corpuscular Hemoglobin 30.2 pg (25.0-34.0); Mean Corpuscular Hgb Conc 32.2 g/dL (32.0-36.0); Mean Corpuscular Volume 93.8 fL (80.0-100.0); Mean Platelet Volume 10.8 fL (9.4-12.4); Monocytes # (auto) 0.93 K/uL (0.11-0.59); Monocytes % (auto) 12.9 %; Neutrophils # (auto) 5.01 K/uL (1.40-6.50); Neutrophils % (auto) 69.7 %; Platelet Count 180 K/uL (130-400); RDW Coefficient of Variation 14.2 % (11.5-14.5); RDW Standard Deviation 48.8 fL (36.4-46.3); Red Blood Count 4.01 M/uL (4.20-5.40)
--- NOTE | 2024-01-01 07:14 | Anesthesiology Consultation ---
Date of Service January 01, 2024 Assessment & Plan Chart Review Chart Review: Acceptable Risk for Surgery and Patient NOT seen in Pre Admission Testing Consults Requested none History Surgery Operation Date: 01/01/24 10:00 Proposed Procedures p Intramedullary Abram Femur(Right) - Erik Melo DO Height/Weight Height: 5 ft 3 in Weight: 63.8 kg Allergies Allergy/AdvReac Type Severity Reaction Status Date / Time cephalexin Allergy Mild red rash Verified 12/31/23 18:31 all over body Medications Home Medications Medication Instructions Recorded Confirmed Last Taken multivitamin (Multiple Vitamins 1 tab PO BID 03/20/19 12/31/23 12/31/23 tablet) omega-3 fatty acids 1,000 mg 1,000 mg PO QPM 03/20/19 12/31/23 12/30/23 capsule ascorbic acid (vitamin C) 500 mg 500 mg PO BID 07/14/19 12/31/23 12/31/23 tablet cholecalciferol (vitamin D3) 50 2,000 units PO QAM 07/14/19 12/31/23 12/31/23 mcg (2,000 unit) tablet vitamin E 600 unit capsule 600 units PO QPM 07/14/19 12/31/23 12/30/23 calcium carbonate (Calcium 600) 1,200 mg PO BID 02/10/21 12/31/23 12/31/23 turmeric 400 mg capsule 400 mg PO QAM 02/10/21 12/31/23 12/31/23 coenzyme Q10 100 mg capsule 100 mg PO QDL 03/18/21 12/31/23 12/31/23 (CoQ-10) zinc 50 mg tablet 50 mg PO QPM 03/18/21 12/31/23 12/30/23 amlodipine 2.5 mg tablet 2.5 mg PO QAM #90 tabs 03/22/23 12/31/23 12/31/23 aspirin 81 mg tablet,delayed 81 mg PO Q OTHER DAY 03/22/23 12/31/23 12/31/23 release rosuvastatin 10 mg tablet (Crestor) 10 mg PO HS #90 tabs 03/22/23 12/31/23 12/30/23 vitamin A 1 applic topical HS Applies to face 12/31/23 12/31/23 12/30/23 Active Medications Generic Name Dose Route Start Last Admin Trade Name Freq PRN Reason Stop Dose Admin Acetaminophen 650 mg 12/31/23 20:00 01/01/24 02:15 Acetaminophen 325 Mg Tab PO 01/30/24 19:59 650 mg Q6H ERNESTO Administration Aspirin 81 mg 12/31/23 21:00 12/31/23 22:09 Aspirin 81 Mg Ectab PO 01/30/24 20:59 81 mg Q2D@2100 ERNESTO Administration Sodium Chloride 1,000 mls @ 125 mls/hr 12/31/23 15:45 01/01/24 03:40 Nss IV 01/30/24 15:44 125 mls/hr .Q8H ERNESTO Administration Morphine Sulfate 2 mg 12/31/23 16:31 12/31/23 19:59 Morphine Sulfate 2 Mg/Ml Carp IV 01/14/24 16:30 2 mg Q3H PRN Administration Pain (1,2,3,4,5) & Pre PT Morphine Sulfate 4 mg 12/31/23 16:31 01/01/24 06:14 Morphine Sulfate 4 Mg/Ml 1 Ml Carp\Vial IV 01/14/24 16:30 4 mg Q3H PRN Administration Pain (6,7,8,9,10) Rosuvastatin Calcium 10 mg 12/31/23 21:00 12/31/23 22:09 Rosuvastatin Calcium 10 Mg Tab PO 01/30/24 20:59 10 mg HS ERNESTO Administration Past Medical History Medical History Wart of face Encounter for pre-operative examination Liver cyst Diverticulosis of sigmoid colon Uterine cancer Post hysterectomy bilateral salpingo-oophorectomy August 2002 Reactive hypertension Dyslipidemia Irritable bowel syndrome Osteoarthritis of right hip Osteoarthritis of spine Osteoporosis Sensorineural hearing loss (SNHL) of both ears Past Family History Family History Son Esophageal reflux Asthma Father Diabetes Heart disease Myocardial infarction Hypertension Mother Heart disease Daughter Allergies Family/Other Dyslipidemia Breast cancer Substance abuse in family Other No family history of adverse response to anesthesia Denies family history of Ovarian cancer Prostate cancer Colonic polyp Past Surgical History Surgical History History of right cataract surgery History of bilateral tubal ligation History of esophagogastroduodenoscopy (EGD) History of total hysterectomy with bilateral salpingo-oophorectomy (BSO) (~2002) History of wisdom tooth extraction History of hernia surgery 08/[address] [facility]--also repaired uterine prolapse at the same time History of uterine prolapse done at same time as hernia sx History of colonoscopy S/P tonsillectomy Social History Smoking Status: Former smoker Do You Dip or Chew Tobacco: No Hx Alcohol Use: Yes Alcohol type: wine alcohol intake frequency: 0-2 drinks per day Alcohol Intake Frequency Comment: 1 glass of wine in the evening. Hx Substance Use: No substance use type: does not use Physical Exam Vital Signs Last Vital Signs Temp 36.5 C 12/31/23 22:47 Pulse 73 12/31/23 22:47 Resp 16 12/31/23 22:47 BP 129/80 12/31/23 22:47 Pulse Ox 95 12/31/23 22:47 O2 Del Method Room Air 12/31/23 22:47 Testing Laboratory Results 01/01/24 06:22 PT 11.0 Seconds (9.0-12.0) 01/01/24 06:22 INR 1.0 (0.9-1.1) 01/01/24 06:22 Stress Test Date: 07/26/23 Type: nuclear Findings: + WNL Resting EF: 65 [address] LV Function: normal Valvular Disease: MR (mild-mod)
[2024-01-01] MEDS ORDERED: fentaNYL citrate PF 100 MCG/2 ML VIAL ONE (07:22)
[2024-01-01] MEDS ORDERED: PROPOFOL IV EMULSION 10 MG/ML 20 ML VIAL IV ONE ×2 (07:22→08:41)
[2024-01-01] MEDS ORDERED: LIDOCAINE 2% 2 ML VIAL/AMP(20MG/ML) INFIL ONE (07:22)
[2024-01-01] MEDS ORDERED: ONDANSETRON INJ 2 MG/ML 2 ML VIAL ONE (07:22)
[2024-01-01 07:25] LABS: Albumin Globulin Ratio 1.5 (0.9-2); Albumin Level 3.6 gm/dl (3.4-5.0); BUN Creatinine Ratio 57.1 (10-20); Bilirubin,Total 0.6 mg/dl (0.2-1.0); Calcium 8.4 mg/dl (8.6-10.3); Creatinine Clr Calc Pharmacy 113.4 ml/min; Est GFR (African American) 118.3 ml/min; Est GFR (Non-African American) 102.1 ml/min; Globulin 2.4 gm/dl (2.5-4.0); Magnesium 1.8 mg/dl (1.7-2.4); Potassium 3.7 mmol/L (3.5-5.1)
[2024-01-01] MEDS ORDERED: VANCOMYCIN CONSULT ACTIVE PRN ×2 (07:35→10:48)
[2024-01-01] MEDS ORDERED: ONDANSETRON INJ 2 MG/ML 2 ML VIAL IV PRN (07:51)
[2024-01-01] MEDS ORDERED: ATROPINE SULFATE 0.1 MG/ML 10ML SYR IV PRN (07:51)
[2024-01-01] MEDS ORDERED: fentaNYL citrate PF 100 MCG/2 ML VIAL IV PRN (07:51)
[2024-01-01] MEDS ORDERED: ePHEDrine sulfate 50 MG/ML AMP IV PRN (07:51)
[2024-01-01] MEDS: VANCOMYCIN HCL 1,000 MG/270 ML BAG IV SCH (07:56)
--- NOTE | 2024-01-01 08:47 | Hospitalist Progress Note ---
Date of Service January 01, 2024 Assessment & Plan (1) Osteoporotic hip fracture: Plan: 83yo presented after fall from chair when attempting to move from one chair without wheels to a wheeled chair and fell onto her buttocks. She does have hx right hip pain/bursitis/osteoarthritis at baseline. on asa 81mg q2d No LOC/head trauma reported but had R hip/buttock pain. Imaging with Mildly displaced and comminuted intertrochanteric fracture within the proximal right femur after falling to the ground while trying to transfer from one chair to another at the [employer] Patient is a Class 1 on the Revised Cardiac Risk index, giving her a 3.9% 30-day risk of , IN, or Cardiac Arrest post >Patient is deemed cleared for Surgical Intervention Orthopedics consulted, planned for IM nailing Continue pain control, antiemetics as needed : tylenol/morphine, tramadol added post-op for oral option WBC wnl, afebrile NPO for OR today for IM nailing with Dr Melo s/p Intramedullary nail fixation right hip(Right) - Erik Melo, DO this morning. EBL 50cc IVF w/ NS running at 125cc/hr. -BUN improved and will decrease to 75cc/hr for now to prevent overload. -CXR w/ stable cardiomegaly/no acute process. PT/OT consults DVT proph: eliquis 2.5mg BID per orthopedics. continue SCDs Monitor labs in AM (2) Fall: Plan: when attempting to transfer from one chair to the other at her [employer] [facility] with wheeled chair. No LOC/head trauma. Not confused. Answering questions appropriately. Fall precautions/hip precautions. s/p IM nailing as above and will await therapy evals to see if needing rehab (3) Dyslipidemia: Plan: -Continue aspirin Q2D and statin ?hold aspirin when on eliquis given no hx IN/CVA (on due to calcium score/atheroscler. plaque w/ PCP) (4) HTN (hypertension): Plan: Stable Amlodipine on hold due to OR/prevent hypotension. Likely able to resume in AM but will monitor (5) Coronary artery calcification: Plan: Per PCP note "atherosclerotic calcification of right popliteal artery on a imaging completed October 24, 2020 discussed with patient most likely present everywhere and treatment unless symptomatic is blood pressure control/chol esterol control/aspirin she reported currently to have no symptoms - calcium score - September 2022 abnormal with score of 236 recommended statin/aspirin and blood pressure control " No previous hx of IN or Stenting Had a negative stress test on 07/26/23 Continue aspirin and statin Of note, did have acute PCP visit for diarrhea/fever, does have hx diverticulosis. Had been resolved for weeks per patient. No issues w/ bowels at baseline and usually moves them once/day. Monitor on pain medication Prior imaging also noting R renal cyst 10.4x6.7x10.7cm which should continue to have f/u outpt Plan Continued inpatient stay, monitor labs in AM/therapy evals updated in room 12/31 Admission and Anticipated Discharge Date Admission Date: December 31, 2023 Subjective Eval this afternoon following her IM nailing of RIGHT hip. in room. Patient sitting up in bed (reports not able to sit up due to hip pain yesterday), eating lunch, chicken and potatoes. First meal since yesterday around lunch time. Continuing IVF until keeping up w/ PO this afternoon and then will plan to discontinue. De La Cruz w/ yellow urine. Will remain in place until eval therapy. Will see how evals go but is agreeable to acute rehab if needed. No CP/SOB, abdominal pain, nausea or vomiting. Questions/concerns addressed at this time.. Physical Exam Physical Exam: General 83yo female sitting up in bed eating lunch, NAD, in room HEENT: head atraumatic, normocephalic, mm slightly dry, trachea midline Resp: CTA, slightly diminished in the bases, no w/c/r, on 1L NC post-op CV: RRR, no significant m/r/g, no pitting edema/calf tenderness GI: +BS, soft/NT : de la cruz with slightly concentrated yellow urine MSK/Neuro: dressings to RIGHT hip c/d/i, no significant bruising/ecchymosis at this time, ice pack in place, toes mobile, pulses palpable Psych: AOx3, cooperative with exam Results & Data Results & Data Vital Signs (Past 12 Hours) Vital Signs Temp Pulse Resp BP Pulse Ox O2 Del Method 12/31/23 22:47 36.5 C 73 16 129/80 95 Room Air Laboratory Results 01/01/24 12/31/23 Range/Units 06:22 16:23 WBC 7.20 8.91 (4.8-10.8) K/ul RBC 4.01 L 4.62 (4.20-5.40) M/uL Hgb 12.1 13.8 (12.0-16.0) g/dl Hct 37.6 41.9 (37.0-47.0) % MCV 93.8 90.7 (80.0-100.0) fL MCH 30.2 29.9 (25.0-34.0) pg MCHC 32.2 32.9 (32.0-36.0) g/dL RDW Std Deviation 48.8 H 47.8 H (36.4-46.3) fL RDW Coeff of Arnel 14.2 14.2 (11.5-14.5) % Plt Count 180 225 (130-400) K/uL MPV 10.8 10.9 (9.4-12.4) fL Immature Gran % (Auto) 0.1 1.1 % Neut % (Auto) 69.7 78.3 % Lymph % (Auto) 15.8 11.3 % [place] % (Auto) 12.9 7.9 % Eos % (Auto) 1.1 0.8 % Baso % (Auto) 0.4 0.6 % Neut # (Auto) 5.01 6.98 H (1.40-6.50) K/uL Lymph # (Auto) 1.14 L 1.01 L (1.20-3.40) K/uL [place] # (Auto) 0.93 H 0.70 H (0.11-0.59) K/uL Eos # (Auto) 0.08 0.07 (0.00-0.50) K/uL Baso # (Auto) 0.03 0.05 (0.00-0.20) K/uL Immature Gran # (Auto) 0.01 0.10 (0.01-0.20) K/uL PT 11.0 10.9 (9.0-12.0) Seconds INR 1.0 1.0 (0.9-1.1) Sodium 139 138 (136-145) mmol/L Potassium 3.7 3.8 (3.5-5.1) mmol/L Chloride 107 103 (98-107) mmol/L Carbon Dioxide 28 27 (21-32) mmol/L Anion Gap 4 8 (3-11) BUN 20 27 H (6-23) mg/dl Creatinine 0.35 L 0.42 L (0.6-1.2) mg/dl Est Cr Clr Drug Dosing 113.4 86.9 ml/min Est GFR ( Amer) 118.3 111.4 ml/min Est GFR (Non-Af Amer) 102.1 96.1 ml/min BUN/Creatinine Ratio 57.1 H 64.3 H (10-20) Glucose 124 H 119 H (70-99(Fasting)) mg/dl Calcium 8.4 L 9.7 (8.6-10.3) mg/dl Magnesium 1.8 (1.7-2.4) mg/dl Total Bilirubin 0.6 0.4 (0.2-1.0) mg/dl AST 17 23 (13-39) U/L ALT 16 19 (7-52) U/L Alkaline Phosphatase 79 96 (34-104) U/L Total Protein 6.0 7.4 (6.0-8.3) gm/dl Albumin 3.6 4.2 (3.4-5.0) gm/dl Globulin 2.4 L 3.2 (2.5-4.0) gm/dl Albumin/Globulin Ratio 1.5 1.3 (0.9-2) Diagnostic Findings Femur X-Ray 12/31/23 15:08 XR femur RT 2V routine HISTORY: 83 years-old Female trauma acute pain of the right hip and thigh COMPARISON: Pelvis and hip radiographs of same day TECHNIQUE: 2 views of the right femur FINDINGS: There is an acute and a comminuted mildly displaced intertrochanteric right femoral fracture. Severe right hip osteoarthritis. Demineralized appearance of the bones. No additional acute fracture or dislocation. Tricompartmental osteoarthritis of the knee. IMPRESSION: Acute comminuted and displaced intertrochanteric right femoral fracture. ACT 112: Negative or not required by law. The above report was generated using voice recognition software. It may contain grammatical, syntax or spelling errors. Electronically signed by: Cole Valentine M.D. 12/31/2023 4:03 PM Hip/Pelvis X-Ray 12/31/23 15:08 XR hip RT 2V w pelvis CLINICAL HISTORY: trauma. Right hip pain. COMPARISON STUDY: None. FINDINGS: Mildly displaced and comminuted intertrochanteric fracture within the proximal right femur. No dislocation of the femoral head. The visualized pelvic bones and left hip are intact. Vascular calcifications are noted. IMPRESSION: Mildly displaced and comminuted intertrochanteric fracture within the proximal right femur. ACT 112: Negative or not required by law. Electronically signed by: Marcio Jackson M.D. 12/31/2023 3:48 PM Chest X-Ray 12/31/23 15:43 XR chest 1V portable HISTORY: pre-op COMPARISON: Chest 11/20/2022. FINDINGS: No pneumothorax. No pleural effusions. Slightly rotated study. The lungs are clear. The heart remains mildly enlarged. No evidence for pulmonary edema. Degenerative changes within the shoulders. Mild dextroscoliosis of the thoracic spine, unchanged. IMPRESSION: Stable cardiomegaly. No acute process within the chest. ACT 112: Negative or not required by law. Electronically signed by: Marcio Jackson M.D. 12/31/2023 4:29 PM Hip X-Ray 01/01/24 00:00 INTRAOPERATIVE RADIOGRAPHS CLINICAL HISTORY: Open reduction and internal fixation of the right proximal femur. Fluoro time: 43 seconds Ka,r: 10.0 mGy FINDINGS: 4 spot fluoroscopic views of the right hip are correlated with radiographs dated 12/31/2023. Intertrochanteric and intramedullary nails have been placed transfixing a comminuted intertrochanteric fracture of the right proximal femur. Near-anatomic alignment is restored. A single cortical lag screw transfixes the distal end of the intramedullary nail. Overlying soft tissue edema is observed. IMPRESSION: Intraoperative images from open reduction and internal fixation of the right proximal femur as above. Electronically signed by: Ed García M.D. 01/01/2024 9:01 AM PG Care Time/CCT Total # of Minutes Spent Total Time Spent with Patient: Total time spent is greater than 50% in coordination of care (as documented) at patient's floor/unit and/or counseling patient: Coding Level of Care Code 20946 SUB INP/OBS CARE 3/50MIN Diagnoses Osteoporotic hip fracture M80.059A Fall W19.XXXA Dyslipidemia E78.5 HTN (hypertension) I10 Coronary artery calcification I25.10; I25.84
[2024-01-01] MEDS ORDERED: PHENYLEPHRINE 100MCG/ML 10ML SYR IV ONE (08:50)
[2024-01-01] MEDS ORDERED: DEXAMETHASONE SOD INJ 4 MG/ML VIAL ONE (08:50)
[2024-01-01] MEDS ORDERED: PHENYLEPHRINE HCL 10 MG/ML VIAL ONE (08:50)
[2024-01-01] MEDS: BUPIVACAINE/EPINEPHRINE 0.25% 1:200,000 30 ML VIAL ONE (08:52)
--- NOTE | 2024-01-01 09:03 | Fluoroscopy Report ---
INTRAOPERATIVE RADIOGRAPHS CLINICAL HISTORY: Open reduction and internal fixation of the right proximal femur. Fluoro time: 43 seconds Ka,r: 10.0 mGy FINDINGS: 4 spot fluoroscopic views of the right hip are correlated with radiographs dated 12/31/2023. Intertrochanteric and intramedullary nails have been placed transfixing a comminuted intertrochanteri c fracture of the right proximal femur. Near-anatomic alignment is restored. A single cortical lag sc rew transfixes the distal end of the intramedullary nail. Overlying soft tissue edema is observed. IMPRESSION: Intraoperative images from open reduction and internal fixation of the right proximal fem ur as above. Electronically signed by: Ed García M.D. 01/01/2024 9:01 AM
--- NOTE | 2024-01-01 09:31 | Operative Report ---
PG Post Operative Report Pre & Post Diagnosis Operation Date: 01/01/24 10:00 Pre-Op Diagnosis: Displaced right intertrochanteric hip fracture Post-Op Diagnosis: Displaced right intertrochanteric hip fracture I identified the patient and participated in the time-out.: Yes Procedure Operation Date: 01/01/24 10:00 Actual Procedures p Intramedullary nail fixation right hip(Right) - Erik Melo DO Surgeon Erik Melo DO Extruding Machine Operator Arnold Saravia PA-C Estimated Blood Loss 50 Findings Consistent with Post-Op Diagnosis Specimens None Description of Procedure On January 01, 2024 Ita was brought down from her hospital room to the preoperative holding area. The operative extremity identified and signed. She was given a preoperative antibiotic. She was taken back to the operating room and given a spinal anesthetic. She was then transferred to the fracture table. The right leg was brought out to traction. Fluoroscopic images confirmed reduction of the fracture. The right hip was then prepped and draped sterile fashion. A timeout was done. The patient and the operative extremity was properly identified. A longitudinal incision was made just superior to the greater trochanter. Dissection was taken down through the fascia. A guidepin was placed at the tip of the greater trochanter and advanced into the femoral canal. Appropriate placement was checked on fluoroscopy. A 16 mm opening reamer was then used to open the femoral canal. A Synthes 12 mm short TFN nail was then impacted into place. Appropriate placement was checked on fluoroscopy. A small lateral incision was made for advancement of the cannula for the helical blade. The cannula was then advanced to the lateral cortex. A guidepin was placed into the center center position of the femoral head. The helical blade measured to be 95 mm helical blade was then drilled and the final helical blade was then impacted into place. The fracture was compressed and the helical blade was locked statically. A distal locking screw was then placed. Final fluoroscopic images showed complete reduction of the fracture and good alignment of the hardware. The wounds were then irrigated. The fascia was closed with #1 Vicryl. Deep layers were closed with 2-0 Vicryl. Skin was closed with 3-0 Vicryl and rocio. She was then placed in soft dressings. She was then transferred back to a hospital bed. She was taken to the postanesthesia care unit in stable condition. She tolerated the procedure well. Arnold Saravia PA-C, was present for the entire procedure. He was critical for patient positioning, prepping, draping, retraction exposure, wound closure and application of sterile dressing. I attest to the content of the Intraoperative Record and any orders documented therein. Any exceptions are noted below.
--- NOTE | 2024-01-01 10:26 | Anesthesiology Progress Note ---
Date of Service January 01, 2024 Anesthesia Post Procedure Vital Signs Vital Signs: Temp Pulse Pulse Pulse Resp BP BP 01/01/24 10:10 74 19 112/83 01/01/24 10:00 72 15 115/77 01/01/24 09:50 72 18 100/75 01/01/24 09:40 78 15 102/75 01/01/24 09:30 72 18 109/76 01/01/24 09:20 63 16 98/68 L 01/01/24 09:12 36.8 C 64 15 124/76 12/31/23 22:47 36.5 C 73 16 129/80 12/31/23 20:06 12/31/23 20:06 36.5 C 86 16 126/81 12/31/23 19:09 36.5 C 79 18 12/31/23 18:32 81 16 12/31/23 15:18 74 12/31/23 15:11 36.9 C 75 18 136/96 BP Pulse Ox O2 Del Method O2 Flow Rate 01/01/24 10:10 96 Nasal Cannula 3 01/01/24 10:00 99 Nasal Cannula 3 01/01/24 09:50 97 Nasal Cannula 3 01/01/24 09:40 97 Oxymask 6 01/01/24 09:30 99 Oxymask 6 01/01/24 09:20 99 Oxymask 8 01/01/24 09:12 95 Oxymask 8 12/31/23 22:47 95 Room Air 12/31/23 20:06 Room Air 12/31/23 20:06 94 Room Air 12/31/23 19:09 157/84 H 95 Room Air 12/31/23 18:32 150/82 H 95 Room Air 12/31/23 15:18 12/31/23 15:11 95 Room Air Pain Intensity Right Leg: Pain Intensity: 3 Transfer of Care Handoff Completed per policy Notes Mental Status: alert / awake / arousable Patient Amnestic to Procedure: Yes Nausea / Vomiting: adequately controlled Pain: adequately controlled Airway Patency, RR, SpO2: stable & adequate BP & HR: stable & adequate Hydration State: stable & adequate Neuraxial Anesthesia: was administered and sensory block is resolving Anesthetic Complications: no major complications apparent and Pt Satisfied with anesthetic care
[2024-01-01] MEDS: ACETAMINOPHEN 1000 MG/100 ML IV IV ONE (11:18)
[2024-01-01] MEDS: amLODIPine BESYLATE 5 MG TAB PO SCH (17:04)
[2024-01-01] MEDS: VANCOMYCIN HCL 1,000 MG in SODIUM CHLORIDE 0.9% 500 ML IV SCH (20:11)
[2024-01-02 07:09] LABS: Basophils # (auto) 0.04 K/uL (0.00-0.20); Basophils % (auto) 0.5 %; Eosinophils # (auto) 0.15 K/uL (0.00-0.50); Eosinophils % (auto) 1.9 %; Hematocrit (blood only) 32.5 % (37.0-47.0); Hemoglobin 10.2 g/dl (12.0-16.0); Immature Granulocytes # (auto) 0.05 K/uL (0.01-0.20); Immature Granulocytes % (auto) 0.6 %; Lymphocytes # (auto) 1.47 K/uL (1.20-3.40); Lymphocytes % (auto) 18.9 %; Mean Corpuscular Hemoglobin 29.9 pg (25.0-34.0); Mean Corpuscular Hgb Conc 31.4 g/dL (32.0-36.0); Mean Corpuscular Volume 95.3 fL (80.0-100.0); Mean Platelet Volume 10.7 fL (9.4-12.4); Monocytes # (auto) 0.98 K/uL (0.11-0.59); Monocytes % (auto) 12.6 %; Neutrophils # (auto) 5.08 K/uL (1.40-6.50); Neutrophils % (auto) 65.5 %; Platelet Count 169 K/uL (130-400); RDW Coefficient of Variation 14.2 % (11.5-14.5); RDW Standard Deviation 49.5 fL (36.4-46.3); Red Blood Count 3.41 M/uL (4.20-5.40); White Blood Count 7.77 K/ul (4.8-10.8)
[2024-01-02 07:14] LABS: Prothrombin Time 11.1 Seconds (9.0-12.0)
[2024-01-02 07:30] LABS: Albumin Globulin Ratio 1.5 (0.9-2); Albumin Level 3.5 gm/dl (3.4-5.0); BUN Creatinine Ratio 29.7 (10-20); Bilirubin,Total 0.6 mg/dl (0.2-1.0); Calcium 8.2 mg/dl (8.6-10.3); Creatinine Clr Calc Pharmacy 111.4 ml/min; Est GFR (African American) 116.2 ml/min; Est GFR (Non-African American) 100.2 ml/min; Globulin 2.4 gm/dl (2.5-4.0); Magnesium 1.8 mg/dl (1.7-2.4); Potassium 3.6 mmol/L (3.5-5.1); Total Protein 5.9 gm/dl (6.0-8.3)
[2024-01-02] MEDS: APIXABAN 2.5 MG TAB PO SCH (08:12)
--- NOTE | 2024-01-02 08:34 | Hospitalist Progress Note ---
Date of Service January 02, 2024 Assessment & Plan (1) Osteoporotic hip fracture: Plan: 83yo presented after fall from chair when attempting to move from one chair without wheels to a wheeled chair and fell onto her buttocks. She does have hx right hip pain/bursitis/osteoarthritis at baseline. on asa 81mg q2d No LOC/head trauma reported but had R hip/buttock pain. Imaging with Mildly displaced and comminuted intertrochanteric fracture within the proximal right femur after falling to the ground while trying to transfer from one chair to another at the [facility] Orthopedics consulted s/p Intramedullary nail fixation right hip(Right) with Dr Erik Melo, DO on 12/31 EBL 50cc WBC wnl on repeat, afebrile Hgb 12.1--> 10.2, acute blood loss anemia from surgery but suspect more from dilutional aspect from IVF pre-op. Was on NS @125, decreased to 75cc and discontinued last evening as keeping up with PO/no further dehydration Pain control seems to be well controlled with tylenol, discussed tramadol available if needed and morphine available for breakthrough. Discussed taking a tramadol before bed if needed to allow for better sleep/pain control DVT proph: scds, eliquis 2.5mg PO BID per orthopedics --> Patient on ASA 81mg Q2d for calcium score/atherosclerotic plaque per PCP. NO WI/hx CVA and will DISCONTINUE/hold this while on Eliquis and once completing duration for dvt proph can be resumed. (last dose asa pm 12/30) PT/OT consults pending in system but discussed with patient and nursing and recs were for acute inpatient rehab and patient would like [facility]. -->Notified CM of such to send referrals once therapy evals written and will plan for dc to [facility] when bed available (2) Fall: Plan: when attempting to transfer from one chair to the other at her [facility] with wheeled chair. No LOC/head trauma. Not confused. Answering questions appropriately. Fall precautions/hip precautions. s/p IM nailing and planning for acute inpatient rehab (3) Dyslipidemia: Plan: Continues on crestor 10mg HS Aspirin being placed on hold while on eliquis for DVT proph as above (4) HTN (hypertension): Plan: Stable but elevated post-op/no hypotension and was resumed BP stable 135/81 this morning in hospital setting, renal function stable and will continue amlodipine/monitor (5) Coronary artery calcification: Plan: Per PCP note "atherosclerotic calcification of right popliteal artery on a imaging completed October 24, 2020 discussed with patient most likely present everywhere and treatment unless symptomatic is blood pressure control/cholest nicole control/aspirin she reported currently to have no symptoms - calcium score - September 2022 abnormal with score of 236 recommended statin/aspirin and blood pressure control " No previous hx of WI or Stenting Had a negative stress test on 07/26/23 Continue statin, aspirin as above and can resume once completed eliquis therapy for dvt proph Other medical issues R Renal cyst - noted R renal cyst 10.4x6.7x10.7cm on prior imaging which should continue to have f/u outpt with urology for continued monitoring/imaging -- appears last seen about a year ago and was wanting to think about further imaging at that time. Cyst reportedly showed up after uterine cancer surgery in 2002 and was followed for a few years after that but prior to 2022 had not had recent follow up and size increased from prior max 9cm Plan Doing great, medically stable for dc to acute inpatient rehab once CM sending therapy notes/auth received/bed available. Hopefully in next 24-48 hours Admission and Anticipated Discharge Date Admission Date: December 31, 2023 Subjective Patient evaluated this morning, sitting up in the chair, in room. Appears improved, pain stable with tylenol at this time, some difficulty sleeping with pain at times - discussed tramadol available and can try. If ineffective will order some oxycodone. Tolerating diet, no fever/chills, chest pain, shortness of breath, abdominal pain or nausea/vomiting at this time. De La Cruz removed this morning. Worked with therapy this morning, recs for rehab. Discussed rehab options- she would like [facility]. Will notify CM of wishes/therapy evals and to have referral sent for [facility] and hopefully able to get her over there for rehab in the next 24-48hrs if continues to do well. She would like to restart her multivitamin and having daughter bring in. Discussed can continue vitamins but would avoid fish oil/omega fatty acids/vit E in meantime Also discussed HOLDING her aspirin while on eliquis as no cardiac hx/stroke and on given atherosclerotic plaques/calcium score to prevent any issues with bleeding. Questions/concerns addressed at this time. Physical Exam Physical Exam: General 83yo female sitting up in chair, NAD, in room HEENT: head atraumatic, normocephalic, mmm, trachea midline Resp: CTA, no obvious w/c/r, on room air CV: RRR, no significant m/r/g, no pitting edema/calf tenderness GI: +BS, soft/NT : de la cruz removed this morning MSK/Neuro: dressings to RIGHT hip c/d/i, slight edema but no significant tenderness, toes mobile/pulses palpable, calves nontender Psych: AOx3, cooperative with exam Results & Data Results & Data Vital Signs (Past 12 Hours) Vital Signs Temp Pulse Resp BP Pulse Ox O2 Del Method 01/02/24 06:56 36.7 C 77 18 135/81 95 Room Air 01/02/24 03:40 36.9 C 94 H 16 126/75 94 Room Air 01/01/24 23:39 36.4 C L 76 16 118/72 93 Room Air Laboratory Results 01/02/24 Range/Units 06:33 WBC 7.77 (4.8-10.8) K/ul RBC 3.41 L (4.20-5.40) M/uL Hgb 10.2 L (12.0-16.0) g/dl Hct 32.5 L (37.0-47.0) % MCV 95.3 (80.0-100.0) fL MCH 29.9 (25.0-34.0) pg MCHC 31.4 L (32.0-36.0) g/dL RDW Std Deviation 49.5 H (36.4-46.3) fL RDW Coeff of Arnel 14.2 (11.5-14.5) % Plt Count 169 (130-400) K/uL MPV 10.7 (9.4-12.4) fL Immature Gran % (Auto) 0.6 % Neut % (Auto) 65.5 % Lymph % (Auto) 18.9 % [place] % (Auto) 12.6 % Eos % (Auto) 1.9 % Baso % (Auto) 0.5 % Neut # (Auto) 5.08 (1.40-6.50) K/uL Lymph # (Auto) 1.47 (1.20-3.40) K/uL [place] # (Auto) 0.98 H (0.11-0.59) K/uL Eos # (Auto) 0.15 (0.00-0.50) K/uL Baso # (Auto) 0.04 (0.00-0.20) K/uL Immature Gran # (Auto) 0.05 (0.01-0.20) K/uL PT 11.1 (9.0-12.0) Seconds INR 1.0 (0.9-1.1) Sodium 140 (136-145) mmol/L Potassium 3.6 (3.5-5.1) mmol/L Chloride 106 (98-107) mmol/L Carbon Dioxide 31 (21-32) mmol/L Anion Gap 3 (3-11) BUN 11 (6-23) mg/dl Creatinine 0.37 L (0.6-1.2) mg/dl Est Cr Clr Drug Dosing 111.4 ml/min Est GFR ( Amer) 116.2 ml/min Est GFR (Non-Af Amer) 100.2 ml/min BUN/Creatinine Ratio 29.7 H (10-20) Glucose 120 H (70-99(Fasting)) mg/dl Calcium 8.2 L (8.6-10.3) mg/dl Magnesium 1.8 (1.7-2.4) mg/dl Total Bilirubin 0.6 (0.2-1.0) mg/dl AST 15 (13-39) U/L ALT 15 (7-52) U/L Alkaline Phosphatase 66 (34-104) U/L Total Protein 5.9 L (6.0-8.3) gm/dl Albumin 3.5 (3.4-5.0) gm/dl Globulin 2.4 L (2.5-4.0) gm/dl Albumin/Globulin Ratio 1.5 (0.9-2) 25-OH Vitamin D Total 48.1 (30-100) ng/ml PG Care Time/CCT Total # of Minutes Spent Total Time Spent with Patient: Total time spent is greater than 50% in coordination of care (as documented) at patient's floor/unit and/or counseling patient: Coding Level of Care Code 49831 SUB INP/OBS CARE 2/35MIN Diagnoses Osteoporotic hip fracture M80.059A Fall W19.XXXA Dyslipidemia E78.5 HTN (hypertension) I10 Coronary artery calcification I25.10; I25.84
--- NOTE | 2024-01-02 09:08 | Orthopedic Progress Note ---
Date of Service January 02, 2024 Assessment & Plan (1) Intertrochanteric fracture of right hip: Overall she is doing very well. She is not having much pain in the right hip. She will be seen by physical therapy today for ambulation and range of motion exercises. Will see how she does. She is on Eliquis 2.5 mg twice a day for 6 weeks for DVT prophylaxis. She can be discharged when medically stable. She will follow-up with orthopedics in 2 weeks. Full orthopedic discharge instructions were placed in the discharge summary. Karolina Jean Baptiste was seen and examined at bedside this morning. Overall she is doing very well. She is not having much pain in the right hip. She feels a lot better than she did yesterday. She is sitting up when I entered the room. She has no complaints.. Review of Systems All systems reviewed & are unremarkable except as noted in HPI & below. Physical Exam On physical examination the right hip, the dressings are clean and dry. Her leg is out full extension. She has active dorsiflexion plantarflexion of the right ankle.. Results & Data Results & Data Laboratory Results . Diagnostic Findings . PG Care Time/CCT Total # of Minutes Spent Total Time Spent with Patient: Total time spent is greater than 50% in coordination of care (as documented) at patient's floor/unit and/or counseling patient: Coding Level of Care Code 04515 Post Operative Follow-Up Diagnoses Intertrochanteric fracture of right hip S72.141A
[2024-01-02] MEDS: traMADol HCL 50 MG TABLET PO PRN (21:10)
--- NOTE | 2024-01-02 21:58 | Electrocardiogram Report ---
Test Reason : Blood Pressure : / mmHG Vent. Rate : 072 BPM Atrial Rate : 072 BPM P-R Int : 154 ms QRS Dur : 096 ms QT Int : 370 ms P-R-T Axes : 049 -10 043 degrees QTc Int : 405 ms Normal sinus rhythm Minimal voltage criteria for LVH, may be normal variant ( R in aVL ) Borderline ECG When compared with ECG of 20-NOV-2022 22:58, No significant change Confirmed by Issa Guevara ([id number]) on 01/02/2024 9:58:03 PM Referred By: REFERRED SELF Confirmed By:Issa Guevara
--- NOTE | 2024-01-02 22:12 | Electrocardiogram Report ---
Test Reason : Blood Pressure : / mmHG Vent. Rate : 082 BPM Atrial Rate : 082 BPM P-R Int : 156 ms QRS Dur : 094 ms QT Int : 402 ms P-R-T Axes : 033 052 052 degrees QTc Int : 469 ms Sinus rhythm with with sinus arrhythmia Nonspecific T wave abnormality Abnormal ECG When compared with ECG of 31-DEC-2023 15:04, (unconfirmed) with sinus arrhythmia are now Present Questionable change in QRS axis Confirmed by Issa Guevara ([id number]) on 01/02/2024 10:11:56 PM Referred By: REFERRED SELF Confirmed By:Issa Guevara
[2024-01-03] MEDS: MAGNESIUM HYDROXIDE SUSP 30 ML UDC PO PRN (05:43)
--- NOTE | 2024-01-03 08:21 | Hospitalist Progress Note ---
<Statement entered by Nemo Knight MD - 01/03/24 16:28> Agree with below. Her did report loud snoring and concern that she may have LILIA. Additional risk factors - age, hypertension. Recommend outpatient sleep medicine referral for possibe LILIA. Date of Service January 03, 2024 Assessment & Plan (1) Osteoporotic hip fracture: Plan: 83yo presented after fall from chair when attempting to move from one chair without wheels to a wheeled chair and fell onto her buttocks. She does have hx right hip pain/bursitis/osteoarthritis at baseline. on asa 81mg q2d No LOC/head trauma reported but had R hip/buttock pain. Imaging with Mildly displaced and comminuted intertrochanteric fracture within the proximal right femur after falling to the ground while trying to transfer from one chair to another at the [facility] Orthopedics consulted s/p Intramedullary nail fixation right hip(Right) with Dr Erik Melo, DO on 12/31 EBL 50cc WBC wnl on repeat, afebrile Hgb 12.1--> 10.2, acute blood loss anemia from surgery but suspect more from dilutional aspect from IVF pre-op. -Was on NS @125, decreased to 75cc and discontinued last evening as keeping up with PO/no further dehydration Pain control seems to be well controlled with Tylenol, discussed tramadol available if needed and morphine available for breakthrough but has been well controlled on Tylenol at this time Passing gas, no abdominal pain at present time. -->Added colace BID scheduled, miralax prn and will monitor DVT proph; eliquis 2.5mg BID (holding home aspirin as below while on this and would continue to hold at dc while on the eliquis given no hx TN/CA and on for prevention w/ atherosclerosis/calcium score) Doing great, pain well controlled on tylenol. Vitals stable, working on bowel regimen and PT/OT consults rec rehab--> CM sent ref to [facility] and plan to dc when bed/auth received. (2) Fall: Plan: when [facility]. No LOC/head trauma. Not confused. Answering questions appropriately. Fall precautions/hip precautions. s/p IM nailing and planning for acute in patient rehab (3) Dyslipidemia: Plan: Continues on crestor 10mg HS Aspirin being placed on hold while on eliquis for DVT proph as above (4) HTN (hypertension): Plan: Chronic, stable 123/74 Continues on home amlodipine daily (5) Coronary artery calcification: Plan: Per PCP note "atherosclerotic calcification of right popliteal artery on a imaging completed October 24, 2020 discussed with patient most likely present everywhere and treatment unless symptomatic is blood pressure control/cholesterol control/aspirin she reported currently to have no symptoms - calcium score - September 2022 abnormal with score of 236 recommended statin/aspirin and blood pressure control " No previous hx of TN or Stenting Had a negative stress test on 07/26/23 Continue statin, aspirin as above placed on hold and can resume once completed eliquis therapy for dvt proph Other medical issues R Renal cyst - noted R renal cyst 10.4x6.7x10.7cm on prior imaging which should continue to have f/u outpt with urology for continued monitoring/imaging -- appears last seen about a year ago and was wanting to think about further imaging at that time. Cyst reportedly showed up after uterine cancer surgery in 2002 and was followed for a few years after that but prior to 2022 had not had recent follow up and size increased from prior max 9cm Plan Hopeful dc to [facility] in next 24 hours-continued inpatient stay awaiting [facility] for acute inpatient rehab. CM following Admission and Anticipated Discharge Date Admission Date: December 31, 2023 Subjective Evaluated this morning, sitting up in bed getting washed up. Not having much pain at all but taking tylenol to stay ahead of any pain. No CP/SOB, fever/chills, no abdominal pain or nausea but working on getting her bowels moving.Was given something this morning and said plan for additional agent if not moving after lunch. Anticipating dc to [facility] when able/auth received but might not be until tomorrow. She notes ortho in this morning and said the same thing. Questions/concerns addressed at this time. Physical Exam Physical Exam: General 83yo female sitting up in bed getting washed up, NAD and appears to be doing great HEENT: head atraumatic, normocephalic, mmm, trachea midline Resp: CTA, no obvious w/c/r, on room air 95% CV: RRR, no significant m/r/g, no pitting edema/calf tenderness GI: +BS, soft/NT no further de la cruz MSK/Neuro: dressings to RIGHT hip c/d/i, slight edema but no significant tenderness, toes mobile/pulses palpable, calves nontender Psych: AOx3, cooperative with exam Results & Data Results & Data Vital Signs (Past 12 Hours) Vital Signs Temp Pulse Resp BP Pulse Ox O2 Del Method 01/03/24 07:30 36.3 C L 92 H 13 135/78 92 Room Air PG Care Time/CCT Total # of Minutes Spent Total Time Spent with Patient: Total time spent is greater than 50% in coordination of care (as documented) at patient's floor/unit and/or counseling patient: Coding Level of Care Code 45951 SUB INP/OBS CARE 2/35MIN Diagnoses Osteoporotic hip fracture M80.059A Fall W19.XXXA Dyslipidemia E78.5 HTN (hypertension) I10 Coronary artery calcification I25.10; I25.84
--- NOTE | 2024-01-03 09:38 | Orthopedic Progress Note ---
Date of Service January 03, 2024 Assessment & Plan (1) Osteoporotic hip fracture: Overall she is doing very well. She is not having too much pain in the right hip. She been participating well with physical therapy. She is on Eliquis for DVT prophylaxis. She is orthopedically stable for discharge when medically ready. Full orthopedic discharge instructions were placed in the discharge summary. She will follow-up with orthopedics in 2 weeks. Orthopedics will sign off. If you have any further questions please feel free to [place] text me or contact me personally on my cell phone [phone]. Karolina Jean Baptiste was seen and examined at bedside this morning. Overall she doing very well. She is not having too much pain in the right hip. She has been up and ambulating. Her pain is well-controlled she has no complaints.. Review of Systems All systems reviewed & are unremarkable except as noted in HPI & below. Physical Exam On physical examination of the right hip, the dressing is clean and dry. Her leg is out in full extension. She has active dorsiflexion plantarflexion of her right ankle.. Results & Data Results & Data Laboratory Results . Diagnostic Findings . PG Care Time/CCT Total # of Minutes Spent Total Time Spent with Patient: Total time spent is greater than 50% in coordination of care (as documented) at patient's floor/unit and/or counseling patient: Coding Level of Care Code 91653 Post Operative Follow-Up Diagnoses Osteoporotic hip fracture M80.059A
[2024-01-03] MEDS ORDERED: POLYETHYLENE (MIRALAX) 17 GM PACK PO PRN (09:45)
[2024-01-03] MEDS: DOCUSATE SODIUM 100 MG CAP PO SCH (10:33)
--- NOTE | 2024-01-04 15:06 | Discharge Summary ---
Discharge Summary Date of Service January 04, 2024 Notes For Next Care Provider Patient fell out of chair and broke her right hip - repaired by Dr. Melo on 12/31. Discharged to [facility] for rehab. DVT proh with eliquis x 6 weeks. 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 Per the ED staff, the patient was trying to transfer from a stationary chair to a chair with wheels. While trying to transfer, the chair with wheels moved causing her to fall to the ground and land on her buttocks. She remained stable in the ED. CBC, CMP, and PT/INR were obtain shortly before admission and are in process. Xray of the pelvis and right femur show an Acute comminuted and displaced intertrochanteric right femoral fracture. Chest xray was read as negative for acute findings. Prior to admission the patient was given 1L NSS, 1gm IV tylenol, and 2 mg IV morphine. At the time of the exam the patient was sitting in bed in no acute distress with her bedside. She states that she was at the [facility] when she was trying to switch from one chair to the other. She states that the new chair she was trying to transfer to rolled out from under her, causing her to fall to the ground. She landed on her right buttocks/hip, did not hit her head or lose consciousness. She is only on aspirin and is not on systemic anticoagulation. Her only pain at this time is in her right hip/RLE; pain is currently mild at rest. She currently denies fever, chills, headache, chest pain, SOB, cough, abd pain, nausea, vomiting, diarrhea, dysuria hematuria, melena, and recent LE swelling. She did have her am meds today. She last ate at approximately 1300 today. She is a full code and her is her medical decision maker if she cannot make decisions herself. Please refer to Dr. Montgomery's attestation for any changes to the treatment plan Principal Dx & Hospital Course #1 = Principal Diagnosis (1) Osteoporotic hip fracture: 83yo presented after fall from chair when attempting to move from one chair without wheels to a wheeled chair and fell onto her buttocks. She does have hx right hip pain/bursitis/osteoarthritis at baseline. No LOC/head trauma reported but had R hip/buttock pain. Imaging with Mildly displaced and comminuted intertrochanteric fracture within the proximal right femur Orthopedics consulted - s/p Intramedullary nail fixation right hip(Right) with Dr Erik Melo, DO on 12/31 - EBL 50cc - Hgb 12.1--> 10.2, acute blood loss anemia from surgery but suspect more from dilutional aspect from IVF pre-op. - Eliquis 2.5mg BID x 6 weeks --> Hold ASA while taking this given no hx of KS (on for primary prevention) Pain control: Tylenol and ice Passing gas, no abdominal pain at present time. 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 No LOC/head trauma. hip fracture as a result as above (4) Dyslipidemia: Continues on crestor 10mg HS Aspirin being placed on hold while on eliquis for DVT proph (5) HTN (hypertension): Chronic, stable 123/74 Continues on home amlodipine daily (6) Coronary artery calcification: Per PCP note "atherosclerotic calcification of right popliteal artery on a imaging completed October 24, 2020 discussed with patient most likely present everywhere and treatment unless symptomatic is blood pressure control/cholesterol control/aspirin she reported currently to have no symptoms - calcium score - September 2022 abnormal with score of 236 recommended statin/aspirin and blood pressure control " No previous hx of KS or Stenting Had a negative stress test on 07/26/23 Continue statin, aspirin as above placed on hold and can resume once completed eliquis therapy for dvt proph Other medical issues R Renal cyst - noted R renal cyst 10.4x6.7x10.7cm on prior imaging which should continue to have f/u outpt with urology for continued monitoring/imaging -- appears last seen about a year ago and was wanting to think about further imaging at that time. Cyst reportedly showed up after uterine cancer surgery in 2002 and was followed for a few years after that but prior to 2022 had not had recent follow up and size increased from prior max 9cm Plan Dispo: discharge to [facility] today Discharge Exam General: NAD, sitting up in the chair, appears well, VS as above Resp: normal respiratory effort, lungs clear to auscultation CV: RRR, no murmur, Extremities: Moves all extremities, no edema. Right hip upper dressing c/d/i, lower dressing with some shadowing Neuro: A&O x3, Updated Medication List Medication Instructions Recorded Confirmed Type multivitamin (Multiple Vitamins 1 tab PO BID 03/20/19 12/31/23 History tablet) omega-3 fatty acids 1,000 mg 1,000 mg PO QPM 03/20/19 12/31/23 History capsule ascorbic acid (vitamin C) 500 mg 500 mg PO BID 07/14/19 12/31/23 History tablet cholecalciferol (vitamin D3) 50 2,000 units PO QAM 07/14/19 12/31/23 History mcg (2,000 unit) tablet vitamin E 600 unit capsule 600 units PO QPM 07/14/19 12/31/23 History calcium carbonate (Calcium 600) 1,200 mg PO BID 02/10/21 12/31/23 History turmeric 400 mg capsule 400 mg PO QAM 02/10/21 12/31/23 History coenzyme Q10 100 mg capsule 100 mg PO QDL 03/18/21 12/31/23 History (CoQ-10) zinc 50 mg tablet 50 mg PO QPM 03/18/21 12/31/23 History amlodipine 2.5 mg tablet 2.5 mg PO QAM #90 tabs 03/22/23 12/31/23 Rx aspirin 81 mg tablet,delayed 81 mg PO Q OTHER DAY 03/22/23 12/31/23 History release rosuvastatin 10 mg tablet (Crestor) 10 mg PO HS #90 tabs 03/22/23 12/31/23 Rx vitamin A 1 applic topical HS Applies to face 12/31/23 12/31/23 History apixaban 2.5 mg tablet (Eliquis) 2.5 mg PO BID 6 weeks #0 tabs 01/03/24 Rx acetaminophen 325 mg tablet 650 mg (2 x 325 mg) PO Q6H #30 tabs 01/04/24 Rx docusate sodium 100 mg capsule 100 mg PO BID #30 caps 01/04/24 Rx Hospital Stay Data Consultations 12/31/23 16:09 ED Decision to Admit Stat 12/31/23 16:41 Consult Orthopedic Surgery Routine Procedures Performed Operation Date: 01/01/24 10:00 Actual Procedures p Intramedullary Abram Femur(Right) - Erik Melo DO Diagnostic Imagining Performed Femur X-Ray 12/31/23 15:08 XR femur RT 2V routine HISTORY: 83 years-old Female trauma acute pain of the right hip and thigh COMPARISON: Pelvis and hip radiographs of same day TECHNIQUE: 2 views of the right femur FINDINGS: There is an acute and a comminuted mildly displaced intertrochanteric right femoral fracture. Severe right hip osteoarthritis. Demineralized appearance of the bones. No additional acute fracture or dislocation. Tricompartmental osteoarthritis of the knee. IMPRESSION: Acute comminuted and displaced intertrochanteric right femoral fracture. ACT 112: Negative or not required by law. The above report was generated using voice recognition software. It may contain grammatical, syntax or spelling errors. Electronically signed by: Cole Valentine M.D. 12/31/2023 4:03 PM Hip/Pelvis X-Ray 12/31/23 15:08 XR hip RT 2V w pelvis CLINICAL HISTORY: trauma. Right hip pain. COMPARISON STUDY: None. FINDINGS: Mildly displaced and comminuted intertrochanteric fracture within the proximal right femur. No dislocation of the femoral head. The visualized pelvic bones and left hip are intact. Vascular calcifications are noted. IMPRESSION: Mildly displaced and comminuted intertrochanteric fracture within the proximal right femur. ACT 112: Negative or not required by law. Electronically signed by: Marcio Jackson M.D. 12/31/2023 3:48 PM Chest X-Ray 12/31/23 15:43 XR chest 1V portable HISTORY: pre-op COMPARISON: Chest 11/20/2022. FINDINGS: No pneumothorax. No pleural effusions. Slightly rotated study. The lungs are clear. The heart remains mildly enlarged. No evidence for pulmonary edema. Degenerative changes within the shoulders. Mild dextroscoliosis of the thoracic spine, unchanged. IMPRESSION: Stable cardiomegaly. No acute process within the chest. ACT 112: Negative or not required by law. Electronically signed by: Marcio Jackson M.D. 12/31/2023 4:29 PM Hip X-Ray 01/01/24 00:00 INTRAOPERATIVE RADIOGRAPHS CLINICAL HISTORY: Open reduction and internal fixation of the right proximal femur. Fluoro time: 43 seconds Ka,r: 10.0 mGy FINDINGS: 4 spot fluoroscopic views of the right hip are correlated with radiographs dated 12/31/2023. Intertrochanteric and intramedullary nails have been placed transfixing a comminuted intertrochanteric fracture of the right proximal femur. Near-anatomic alignment is restored. A single cortical lag screw transfixes the distal end of the intramedullary nail. Overlying soft tissue edema is observed. IMPRESSION: Intraoperative images from open reduction and internal fixation of the right proximal femur as above. Electronically signed by: Ed García M.D. 01/01/2024 9:01 AM Pending Results Patient Have Any Pending Studies at Discharge: No Discharge Instructions Given to Patient (Per Discharging Provider) You have been hospitalized for fall from chair and sustained a right hip fracture. Orthopedics, Dr Melo, was consulted and you underwent IM nailing on the right. Pain has been well controlled on Tylenol and you can continue this at discharge along with ice as needed. You have been placed on low dose Eliquis 2.5mg by mouth TWICE daily for 6 weeks from surgery to prevent blood clots. Do not take Ibuprofen, Napoxen, aleve or other NSAIDs while taking this. Tylenol is OKAY. Eliquis is a blood thinner and these medications increase your risk of bleeding. You may bruise easier during this time. If you have any falls or hit your head in anyway, recommend that you come to the ER to be evaluated. Your aspirin should be HELD during this time and can be resumed every other day once you are off the eliquis. You have been evaluated by therapy and recommendations are for acute inpatient rehab at discharge which has been arranged. You should follow up with PCP/urology regarding your kidney cyst that has not been monitored in awhile. Please follow up with orthopedics 2 weeks from surgery. Please follow up with primary care in the next 7-10 days to monitor your status after discharge. Please return to the ER with any increased pain, redness/drainage, fever/chills, chest pain, shortness of breath or for any other symptoms concerning for you. It has been a pleasure being a part of the medical team providing for you while you have been in the hospital. Take care! Total Time Total Time Spent Total Time Spent (In Minutes): Time spend day of discharge 35 minutes including direct patient care, medication reconciliation, documentation, review of labs and images, and coordination of care. Supervising Physician Co-Signing Physician Notes Attending Attestation and Discharge Note: Pt seen/examined, chart reviewed, discharge care plan d/w MUMTAZ Bro. I agree w/ the dunlap components of her discharge documentation. Very pleasant 83yo female who presented following a fall in [facility] which led to a right hip fracture. On 01/01/24 Dr Erik Melo performed ORIF without complication. 25-OH vit D level = 48. Will take Eliquis 2.5mg BID x 6 weeks for DVT proph. Day of discharge noted to have suspected extra beats on physical exam; EKG with NSR, no a.fib or other dysrhythmia. Transferring to [facility] for acute rehab. Discharge exam - gen - NAD, sitting in chair neck - no JVD mouth - MMM heart - irregular (extra beats), s1 s2, no murmur; rate <100 BPM lungs - CTA b/l, no rales abd - soft NT ND BS+ ext - right thigh swelling; dressings intact right lateral hip; no edema of feet; pulses 2+ b/l feet psych - a/o x 3 Agree w/ follow-up for right renal cyst. 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
--- NOTE | 2024-01-06 06:07 | Electrocardiogram Report ---
Test Reason : Blood Pressure : / mmHG Vent. Rate : 084 BPM Atrial Rate : 084 BPM P-R Int : 144 ms QRS Dur : 094 ms QT Int : 364 ms P-R-T Axes : 056 -03 036 degrees QTc Int : 430 ms Normal sinus rhythm Minimal voltage criteria for LVH, may be normal variant Borderline ECG When compared with ECG of 31-DEC-2023 21:06, Nonspecific T wave abnormality no longer evident in Lateral leads Confirmed by Scotty Rosales ([id number]) on 01/06/2024 6:07:05 AM Referred By: REFERRED SELF Confirmed By:Scotty Rosales
== END 2024-01-04 16:40 | DRG 482 ==
LOC: ED 14:51 → SUATTDRO 16:36 → 3W 16:36